=== PATIENT | female | born 1955 | race Caucasian/White ===

== ENCOUNTER → 2016-11-30 | Outpatient (REF) | payer MEDICARE, OTHER ==
[~2016-11-30] MED LIST: /GLIM2TA OR; ALLO300T OR; APIDINJ INJ; APIDINJ2 SC; APIDINJ2 SUBQ; ATOR1TAB18 PO; BACT800T5 PO; CALC1CAP31 PO; CIPR500T4 PO; CLAR1TAB2 PO; CRES40TA PO; DOCU100C PO; DRIS50002 PO; DULC10SU2 PR; DULCOLAX PO; EPOGEN SC; FERR324T2 PO; FERR325T PO; FISH1000 PO; GLIM4TAB PO; HEPARIN IP; INSULANT SC; IRON CR PO; KLOR1TAB69 PO; LANTINJ4 SC; LEVA250T PO; LIPI10TA OR; LOVA1CAP17 PO; LYRI150C PO; LYRI75CA OR; MAGN250T9 PO; MAGN400T2 PO; MOBI7.5T10 PO; NEPHTAB PO; NYST5000 TOP; PERCOCET PO; POTA10CA PO; POTA20TA2 PO; PRIL40CA PO; RENV2TAB PO; SENO8.6T2 PO; SEVE80TAB PO; STOO100C PO; THERGRAN PO; TRIL135C PO; TRILIPIX PO; TYLE325T5 PO; VICTOZA SC; VITAMIN D50000 UNT OR; VITMTA PO; WARF05TA PO
[2016-11-30 11:54] LABS: MEAN CORPUSCULAR HEMOGLOBIN 28.9 pg (27.0-33.0); MEAN CORPUSCULAR HGB CONC 31.1 g/dl (32.0-36.5); MEAN CORPUSCULAR VOLUME 92.8 fl (80.0-96.0); PLATELET COUNT, AUTOMATED 100 k/mm3 (150-450); RED CELL DISTRIBUTION WIDTH 17.9 % (11.5-14.5); WHITE BLOOD COUNT 3.6 K/mm3 (4.0-10.0)
[2016-11-30 12:03] LABS: CHOLESTEROL LEVEL 93 MG/DL (<200); FREE T4 0.93 NG/DL (0.76-1.46); TRIGLYCERIDES LEVEL 150 MG/DL (<150)
[2016-11-30 12:04] LABS: THYROID PEROXIDASE ANTIBODY < 28.0 U/ML (<60.0)
[2016-11-30 12:18] LABS: ANISOCYTOSIS 1+; BASOPHILS 1 % (0-4); EOSINOPHILS 6 % (0-5); HYPOCHROMASIA 3+
== END ==
LOC: M SFHCPLAZ 08:34
PROVIDERS: ATTEND Family Medicine
DX: E78.2 Mixed hyperlipidemia (principal); E11.29 Type 2 diabetes mellitus with other diabetic kidney complication

== ENCOUNTER 2016-12-19 10:48 | Observation (INO) | payer MEDICARE, OTHER ==
[~2016-12-19] VITALS: Ht 162.6 cm; Wt 92.4 kg
[2016-12-19] MEDS ORDERED: ONDANSETRON 4MG/2ML VIAL (J2405) As Ordered ONE (11:29)
[2016-12-19 11:50] LABS: BASO % 0.8 % (0.0-1.0); EOS # 0.1 K/mm3 (0.0-0.50); LARGE UNSTAINED CELL # 0.1 K/mm3 (0.0-0.4); LARGE UNSTAINED CELL % 2.2 % (0.0-4.0); LYMPH # 0.7 K/mm3 (1.5-4.5); LYMPH % 17.6 % (24.0-44.0); MEAN CORPUSCULAR HGB CONC 31.8 g/dl (32.0-36.5); MONO # 0.2 K/mm3 (0.0-0.8); MONO % 6.6 % (0.0-5.0); NEUTROPHILS # 2.4 K/mm3 (1.8-7.7); NEUTROPHILS % 70.8 % (36.0-66.0); PLATELET COUNT, AUTOMATED 110 k/mm3 (150-450); RED CELL DISTRIBUTION WIDTH 17.2 % (11.5-14.5); WHITE BLOOD COUNT 3.4 K/mm3 (4.0-10.0)
[2016-12-19 12:20] LABS: CALCIUM LEVEL 9.5 MG/DL (8.8-10.2); CREATININE FOR GFR 7.77 MG/DL (0.55-1.02); GLOMERULAR FILTRATION RATE 5.6 (>45); POTASSIUM SERUM 5.1 MEQ/L (3.5-5.1)
[2016-12-19] MEDS ORDERED: ROPI0.25 PO (15:12)
[2016-12-19] MEDS ORDERED: BIOT10005 PO (15:13)
[2016-12-19] MEDS ORDERED: ACET500C PO (15:15)
[2016-12-19] MEDS ORDERED: DOCUSATE SODIUM 100 MG CAP PO PRN (17:45)
[2016-12-19] MEDS ORDERED: GLUCOSE 4 GM CHEW TABLET PO PRN (17:45)
[2016-12-19] MEDS ORDERED: GLUCAGON FOR INJ 1 MG VIAL (J1610) SC PRN (17:45)
[2016-12-19] MEDS ORDERED: DEXTROSE 50% 50 ML SYRINGE IV PRN (17:45)
[2016-12-19] MEDS ORDERED: ONDANSETRON 4MG/2ML VIAL (J2405) IV PRN (17:45)
--- NOTE | 2016-12-19 18:45 | EDDOCDS ---
Physician Documentation [facility] Name: Cha Henlsey Age: 61 yrs Sex: Female : 1955 Arrival Date: 12/19/2016 Time: 10:48 Bed 20 Private MD: Petey Lopez E. Disposition: 12/19/16 15:50 Hospitalization ordered by Carlos Tomas for Inpatient Admission. Preliminary diagnosis are Benign paroxysmal vertigo, End stage renal disease. - Bed requested for 4 [place]. - Status is Inpatient Admission. pml - Condition is Stable. - Problem is new. - Symptoms have improved. Historical: - Allergies: Adhesives (Rash); Antivert; aspartame (Rash); - Home Meds: 1. acetaminophen 325 mg Oral tab 2 tabs as needed as needed 2. Apidra 100 unit/mL subcutaneous soln twice a day per sliding sclae 3. biotin 1,000 mcg oral chew daily 4. calcitriol 0.25 mcg oral cap three times a day 5. Claritin 10 mg Oral tab 1 tab once daily as needed 6. Crestor 40 mg Oral tab 1 tab once daily 7. Dulcolax (bisacodyl) 10 MG CAP Rectal supp 1 suppository once daily as needed 8. Drisdol 5,000 units Oral twice a week 9. ferrous sulfate 324 mg (65 mg iron) Oral TbEC twice a day 10. Lantus 100 unit/mL Sub-Q soln 28 unit daily 11. Lovaza 1 gram oral cap 2 times per day 12. Nephro-Jess Rx 1-60-300 mg-mg-mcg oral tab 1 tab daily 13. Renvela 1600mg oral 3 times per day with meals 14. Senokot 8.6 mg Oral tab 1 tabs twice a day 15. Trilipix 135 mg oral cpDR 1 cap once daily 16. pregabalin 150 mg Oral cap 1 cap 2 times per day - PMHx: Chronic Renal Failure with dialysis; Diabetes - NIDDM: controlled; Diabetic Neuropathy; High Cholesterol; Sleep Apnea w/ CPAP; Vertigo; - PSHx: Cholecystectomy; Appendectomy; Hysterectomy; Orthopedic Surgery; fistula left arm; PD catheter; PD catheter removal (10/09/2016); - Family history: Not pertinent. - Social history: Smoking status: Patient uses tobacco products and is smoker, current status unknown. . - : The pt / caregiver states he / she is not on anticoagulants. Home medication list is obtained from the patient. - Exposure Risk Screening:: None identified. Vital Signs: 12/19 10:50 BP 162 / 72; Pulse 60; Resp 20; Temp 96.7(O); Pulse Ox 96% on R/A; Weight 88 kg / elp 194.01 lbs (R); Height 5 ft. 4 in. (162.56 cm) (R); Pain 10/10; 10:58 BP 156 / 71 Sitting (auto/); hs1 11:00 Pulse 66 MON; Pulse Ox 99% ; hs1 11:01 Pulse 64 MON; Pulse Ox 99% ; hs1 11:01 BP 152 / 69 Standing (auto/); hs1 11:27 BP 154 / 67 (auto/); rs3 11:27 Pulse 58 MON; Pulse Ox 100% ; rs3 11:40 Pulse 60 MON; Pulse Ox 100% ; rs3 11:42 BP 149 / 66 (auto/); rs3 11:57 BP 149 / 71 (auto/); rs3 11:57 Pulse 56 MON; Pulse Ox 99% ; rs3 12:12 BP 126 / 59 (auto/); rs3 12:12 Pulse 58 MON; Pulse Ox 97% ; rs3 12:27 BP 131 / 63 (auto/); rs3 12:27 Pulse 56 MON; Pulse Ox 99% ; rs3 12:51 BP 140 / 64 (auto/); rs3 12:52 Pulse 60 MON; Pulse Ox 95% ; rs3 12:57 BP 144 / 74 (auto/); rs3 12:59 Pulse 60 MON; Pulse Ox 100% ; rs3 13:14 BP 142 / 67 (auto/); rs3 13:17 Pulse 58 MON; Pulse Ox 99% ; rs3 13:27 BP 139 / 63 (auto/); rs3 13:27 Pulse 58 MON; Pulse Ox 99% ; rs3 13:37 Pulse 58 MON; Pulse Ox 94% ; rs3 13:42 BP 143 / 65 (auto/); rs3 13:42 Pulse 60 MON; Pulse Ox 98% ; rs3 13:57 BP 142 / 67 (auto/); rs3 13:57 Pulse 60 MON; Pulse Ox 95% ; rs3 14:09 Pulse 64 MON; Pulse Ox 92% ; rs3 14:12 BP 136 / 63 (auto/); rs3 14:27 BP 130 / 62 (auto/); rs3 14:27 Pulse 68 MON; Pulse Ox 93% ; rs3 14:38 Pulse 64 MON; Pulse Ox 96% ; rs3 14:42 BP 136 / 75 (auto/); rs3 14:42 Pulse 68 MON; Pulse Ox 99% ; rs3 14:57 BP 129 / 68 (auto/); rs3 14:57 Pulse 62 MON; Pulse Ox 95% ; rs3 15:08 Pulse 62 MON; Pulse Ox 98% ; rs3 17:22 BP 128 / 99 (auto/); pml 17:24 Pulse 72 MON; Pulse Ox 88% ; pml 18:35 BP 134 / 71; Pulse 64; Resp 18; Temp 98.3; Pulse Ox 98% on R/A; pml 10:50 Body Mass Index 33.30 (88.00 kg, 162.56 cm) elp MDM: 10:57 Plastic Cutter/Pulse Ox/q 15 min VS ordered. fg 10:57 Accucheck ordered. fg 10:57 IV Saline Lock ordered. fg 10:57 Orthostatic VS ordered. fg 10:57 Rhythm Strip to chart ordered. fg 10:58 Basic Metabolic Profile Ordered. EDMS 10:58 CBC with Diff Ordered. EDMS 10:58 Thyroid Stimulating Hormone Ordered. EDMS 10:58 Urinalysis Ordered. EDMS 10:58 Urine Culture Ordered. EDMS 10:59 ECG WITH READING ER PHYS+CARDIAG ordered. EDMS 11:15 Ondansetron 4 mg IVP once ordered. fg 12:39 Financial registration complete. mm15 12:46 [facility] Payment Agreement was scanned into [employer] and attached to record. mm15 13:58 BED REQUEST+ADM ordered. EDMS 17:46 T-Sheet-- Draft Copy was scanned into [employer] and attached to record. klr 17:50 Admission / Observation Status ordered. EDMS 17:50 CONSISTENT CARBOHYDRATES ordered. EDMS 17:50 NO ADDED SALT DIET ordered. EDMS 17:50 2 GRAM SODIUM DIET ordered. EDMS Point of Care Testing: Blood Glucose: 11:24 Blood Glucose: 75 mg/dL; rs3 Ranges: Administered Medications: 11:56 Drug: Ondansetron 4 mg [ondansetron HCl 2 mg/mL intravenous solution (2 mL)] Route: rs3 IVP; Site: right antecubital; Signatures: Dispatcher [employer] DANNY MCGREGOR, TRINIDAD De Anda RN, Rosemary, RN RN rs3 Mabel RiceRN RN Ward Lindsay mm15 Susan Don MD MD fg Redder, Kathie klr The chart was reviewed and I authenticate all verbal orders and agree with the evaluation and treatment provided.Attachments: 12:46 [place] [place] mm15 17:46 T-Sheet-- Draft Copy klr MTDD
--- NOTE | 2016-12-19 18:45 | EDDOCDS ---
Nurse's Notes [facility] Name: Cha Hensley Age: 61 yrs Sex: Female : 1955 Arrival Date: 12/19/2016 Time: 10:48 Bed 20 Private MD: Petey Lopez E. Diagnosis: Benign paroxysmal vertigo;End stage renal disease Presentation: 12/19 11:04 Presenting complaint: Patient states: dizziness started when patient woke up this hs1 morning. Patient describes room as spinning and "I feel like I'm a bad drunk". Patient reports nausea. Denies vomiting, no diarrhea. Adult Sepsis Screening: The patient does not have new or worsening altered mentation. Patient's respiratory rate is less than 22. Systolic blood pressure is greater than 100. Patient has a qSOFA score of 0- Negative Sepsis Screen. Suicide/Homicide risk assessment- the patient denies having any suicidal and/or homicidal ideations and does not present with any other emotional, behavioral or mental health complaints. Status: Patient is not a human service worker or dependent. Transition of care: patient was not received from another setting of care. 11:04 Acuity: GINA Level 3 hs1 11:04 Method Of Arrival: Walkin/Carried/Asstd hs1 Triage Assessment: 11:07 General: Appears in no apparent distress, Behavior is appropriate for age, cooperative. hs1 HIV screening NA for this visit Offered previously. Neurological: Level of Consciousness is awake, alert, Reports dizziness. Historical: - Allergies: Adhesives (Rash); Antivert; aspartame (Rash); - Home Meds: 1. acetaminophen 325 mg Oral tab 2 tabs as needed as needed 2. Apidra 100 unit/mL subcutaneous soln twice a day per sliding sclae 3. biotin 1,000 mcg oral chew daily 4. calcitriol 0.25 mcg oral cap three times a day 5. Claritin 10 mg Oral tab 1 tab once daily as needed 6. Crestor 40 mg Oral tab 1 tab once daily 7. Dulcolax (bisacodyl) 10 MG CAP Rectal supp 1 suppository once daily as needed 8. Drisdol 5,000 units Oral twice a week 9. ferrous sulfate 324 mg (65 mg iron) Oral TbEC twice a day 10. Lantus 100 unit/mL Sub-Q soln 28 unit daily 11. Lovaza 1 gram oral cap 2 times per day 12. Nephro-Jess Rx 1-60-300 mg-mg-mcg oral tab 1 tab daily 13. Renvela 1600mg oral 3 times per day with meals 14. Senokot 8.6 mg Oral tab 1 tabs twice a day 15. Trilipix 135 mg oral cpDR 1 cap once daily 16. pregabalin 150 mg Oral cap 1 cap 2 times per day - PMHx: Chronic Renal Failure with dialysis; Diabetes - NIDDM: controlled; Diabetic Neuropathy; High Cholesterol; Sleep Apnea w/ CPAP; Vertigo; - PSHx: Cholecystectomy; Appendectomy; Hysterectomy; Orthopedic Surgery; fistula left arm; PD catheter; PD catheter removal (10/09/2016); - Family history: Not pertinent. - Social history: Smoking status: Patient uses tobacco products and is smoker, current status unknown. . - : The pt / caregiver states he / she is not on anticoagulants. Home medication list is obtained from the patient. - Exposure Risk Screening:: None identified. Screenin:55 Infection Control. elp 12:20 Screening information is obtained from the patient. Fall risk: No risks identified. rs3 Assistance ADL's: requires no assistance with activities of daily living. Abuse/DV Screen: The patient / caregiver reports he/she is: not in a situation that causes fear, pain or injury. Nutritional screening: No deficits noted. Advance Directives: Currently, there is a health care proxy, Wilfred Hensley () Chana Bautista (sister). There is no active DNR order. home support is adequate. Assessment: 11:30 General: see triage assessment. rs3 12:19 General: Appears in no apparent distress, Behavior is appropriate for age, cooperative. rs3 Pain: Denies pain. Neurological: Level of Consciousness is awake, alert, Oriented to person, place, time, Reports dizziness, worse with when turning head side to side. . Cardiovascular: Capillary refill < 3 seconds Clubbing of nail beds is absent Heart tones S1 S2 present. Respiratory: Airway is patent Respiratory effort is even, unlabored, Respiratory pattern is regular, symmetrical, Breath sounds are clear bilaterally. GI: Abdomen is non- distended Bowel sounds present X 4 quads. Abd is soft and non tender X 4 quads. : Urine is clear. Derm: Skin is pink, warm & dry. 13:40 General: Appears in no apparent distress, assisted patient with ambulation. stable, rs3 slow walking. dizziness/vertigo improved with activity. denies of nausea. reports of difficulty with speaking and getting words with kidney function levels. missed dialysis today. . 14:43 General: Appears in no apparent distress, Behavior is appropriate for age, cooperative, rs3 resting comfortable on stretcher. vertigo improved much better. diet ordered. waiting for a call back from nephrology. . 15:45 General: Appears in no apparent distress, Behavior is cooperative, family brought rs3 sandwich from cafeteria. tolerating well. denies of dizziness/vertigo. family at bedside. 16:45 General: Appears in no apparent distress, Behavior is appropriate for age, cooperative, rs3 patient and family made aware of the plan of admission. denies of pain/distress. 17:49 General: Appears in no apparent distress, Behavior is appropriate for age, cooperative. pml Pain: Denies pain. Neurological: Level of Consciousness is awake, alert, Oriented to person, place, time. Cardiovascular: Capillary refill < 3 seconds Rhythm is sinus rhythm No ectopy. Respiratory: Airway is patent Respiratory effort is even, unlabored. GI: Abdomen is non- distended obese. Derm: Skin is pink, warm & dry. 18:35 General: Appears in no apparent distress, comfortable, Behavior is appropriate for age, pml cooperative. Pain: Denies pain. Neurological: Level of Consciousness is awake, alert, Oriented to person, place, time. Cardiovascular: Capillary refill < 3 seconds Rhythm is sinus rhythm No ectopy. Respiratory: Airway is patent Respiratory effort is even, unlabored. GI: Abdomen is non- distended obese. Derm: Skin is pink, warm & dry. Vital Signs: 10:50 BP 162 / 72; Pulse 60; Resp 20; Temp 96.7(O); Pulse Ox 96% on R/A; Weight 88 kg (R); elp Height 5 ft. 4 in. (162.56 cm) (R); Pain 10/10; 10:58 BP 156 / 71 Sitting (auto/); hs1 11:00 Pulse 66 MON; Pulse Ox 99% ; hs1 11:01 Pulse 64 MON; Pulse Ox 99% ; hs1 11:01 BP 152 / 69 Standing (auto/); hs1 11:27 BP 154 / 67 (auto/); rs3 11:27 Pulse 58 MON; Pulse Ox 100% ; rs3 11:40 Pulse 60 MON; Pulse Ox 100% ; rs3 11:42 BP 149 / 66 (auto/); rs3 11:57 BP 149 / 71 (auto/); rs3 11:57 Pulse 56 MON; Pulse Ox 99% ; rs3 12:12 BP 126 / 59 (auto/); rs3 12:12 Pulse 58 MON; Pulse Ox 97% ; rs3 12:27 BP 131 / 63 (auto/); rs3 12:27 Pulse 56 MON; Pulse Ox 99% ; rs3 12:51 BP 140 / 64 (auto/); rs3 12:52 Pulse 60 MON; Pulse Ox 95% ; rs3 12:57 BP 144 / 74 (auto/); rs3 12:59 Pulse 60 MON; Pulse Ox 100% ; rs3 13:14 BP 142 / 67 (auto/); rs3 13:17 Pulse 58 MON; Pulse Ox 99% ; rs3 13:27 BP 139 / 63 (auto/); rs3 13:27 Pulse 58 MON; Pulse Ox 99% ; rs3 13:37 Pulse 58 MON; Pulse Ox 94% ; rs3 13:42 BP 143 / 65 (auto/); rs3 13:42 Pulse 60 MON; Pulse Ox 98% ; rs3 13:57 BP 142 / 67 (auto/); rs3 13:57 Pulse 60 MON; Pulse Ox 95% ; rs3 14:09 Pulse 64 MON; Pulse Ox 92% ; rs3 14:12 BP 136 / 63 (auto/); rs3 14:27 BP 130 / 62 (auto/); rs3 14:27 Pulse 68 MON; Pulse Ox 93% ; rs3 14:38 Pulse 64 MON; Pulse Ox 96% ; rs3 14:42 BP 136 / 75 (auto/); rs3 14:42 Pulse 68 MON; Pulse Ox 99% ; rs3 14:57 BP 129 / 68 (auto/); rs3 14:57 Pulse 62 MON; Pulse Ox 95% ; rs3 15:08 Pulse 62 MON; Pulse Ox 98% ; rs3 17:22 BP 128 / 99 (auto/); pml 17:24 Pulse 72 MON; Pulse Ox 88% ; pml 18:35 BP 134 / 71; Pulse 64; Resp 18; Temp 98.3; Pulse Ox 98% on R/A; pml 10:50 Body Mass Index 33.30 (88.00 kg, 162.56 cm) elp Vitals: 10:50 Log In Time: December 19, 2016 at 10:45. RN notified that patient meets Red Flag elp criteria. ED Course: 10:50 Patient visited by Aretha Suero PCA. elp 10:50 Petey Lopez is Private Physician. elp 10:50 Patient moved to Waiting elp 10:55 Patient moved to 5 elp 10:56 Susan Don MD is Attending Physician. fg 10:56 Patient visited by Susan Don MD. fg 11:06 Triage Initiated hs1 11:26 EKG done. (by ED staff). Reviewed by Susan Don MD. rn1 11:43 Eri Liriano RN is Primary Nurse. rs3 12:18 Patient visited by Eri Liriano RN. rs3 12:21 Inserted saline lock: 20 gauge in right antecubital area and blood collected. Labs rs3 drawn. (by ED staff). 12:24 Patient visited by Eri Liriano RN. rs3 12:46 [place] [place] was scanned into [employer] and attached to record. mm15 13:03 Patient visited by Eri Liriano RN. rs3 13:36 Isabella Palafox sheet finisher. nq 13:39 Patient visited by Eri Liriano RN. rs3 14:40 Patient visited by Eri Liriano RN. rs3 15:10 Patient visited by Eri Liriano RN. rs3 15:49 Carlos Tomas MD is Hospitalizing Provider. fg 17:03 Patient moved to 20 dls 17:46 T-Sheet-- Draft Copy was scanned into [employer] and attached to record. klr 17:50 Patient visited by Mabel Rice RN. pml 18:35 The patient / caregiver is instructed regarding the plan of care and ED course. Patient pml has correct armband on for positive identification. Placed in gown. Bed in low position. Call light in reach. Side rails up X2. teletypesetter monitor on. Pulse ox on. NIBP on. 18:35 No procedures done that require assistance. pml Administered Medications: 11:56 Drug: Ondansetron 4 mg [ondansetron HCl 2 mg/mL intravenous solution (2 mL)] Route: rs3 IVP; Site: right antecubital; Point of Care Testing: Blood Glucose: 11:24 Blood Glucose: 75 mg/dL; rs3 Ranges: Order Results: Lab Order: Basic Metabolic Profile; SPEC'M 12/19/16 11:37 Test: GLUCOSE, FASTING; Value: 89; Range: 80-110; Units: MG/DL; Status: F Test: BLOOD UREA NITROGEN; Value: 69; Range: 7-18; Abnormal: Above high normal; Units: MG/DL; Status: F Test: CREATININE FOR GFR; Value: 7.77; Range: 0.55-1.02; Abnormal: Above high normal; Units: MG/DL; Status: F Test: GLOMERULAR FILTRATION RATE; Value: 5.6; Range: >45; Abnormal: Below low normal; Status: F Test: SODIUM LEVEL; Value: 146; Range: 136-145; Abnormal: Above high normal; Units: MEQ/L; Status: F Test: POTASSIUM SERUM; Value: 5.1; Range: 3.5-5.1; Units: MEQ/L; Status: F Test: CHLORIDE LEVEL; Value: 108; Range: 98-107; Abnormal: Above high normal; Units: MEQ/L; Status: F Test: CARBON DIOXIDE LEVEL; Value: 25; Range: 21-32; Units: MEQ/L; Status: F Test: ANION GAP; Value: 13; Range: 8-16; Units: MEQ/L; Status: F Test: CALCIUM LEVEL; Value: 9.5; Range: 8.8-10.2; Units: MG/DL; Status: F Test Note: ; Units are mL/min/1.73 m2 Chronic Kidney Disease Staging per NKF: Stage I & II GFR >=60 Normal to Mildly Decreased Stage III GFR 30-59 Moderately Decreased Stage IV GFR 15-29 Severely Decreased Stage V GFR <15 Very Little GFR Left ESRD GFR <15 on [employer] Lab Order: CBC with Diff; SPEC'M 12/19/16 11:37 Test: WHITE BLOOD COUNT; Value: 3.4; Range: 4.0-10.0; Abnormal: Below low normal; Units: K/mm3; Status: F Test: RED BLOOD COUNT; Value: 3.98; Range: 4.00-5.40; Abnormal: Below low normal; Units: M/mm3; Status: F Test: HEMOGLOBIN; Value: 11.5; Range: 12.0-16.0; Abnormal: Below low normal; Units: g/dl; Status: F Test: HEMATOCRIT; Value: 36.3; Range: 36.0-47.0; Units: %; Status: F Test: MEAN CORPUSCULAR VOLUME; Value: 91.0; Range: 80.0-96.0; Units: fl; Status: F Test: MEAN CORPUSCULAR HEMOGLOBIN; Value: 29.0; Range: 27.0-33.0; Units: pg; Status: F Test: MEAN CORPUSCULAR HGB CONC; Value: 31.8; Range: 32.0-36.5; Abnormal: Below low normal; Units: g/dl; Status: F Test: RED CELL DISTRIBUTION WIDTH; Value: 17.2; Range: 11.5-14.5; Abnormal: Above high normal; Units: %; Status: F Test: PLATELET COUNT, AUTOMATED; Value: 110; Range: 150-450; Abnormal: Below low normal; Units: k/mm3; Status: F Test: NEUTROPHILS %; Value: 70.8; Range: 36.0-66.0; Abnormal: Above high normal; Units: %; Status: F Test: LYMPH %; Value: 17.6; Range: 24.0-44.0; Abnormal: Below low normal; Units: %; Status: F Test: MONO %; Value: 6.6; Range: 0.0-5.0; Abnormal: Above high normal; Units: %; Status: F Test: EOS %; Value: 2.0; Range: 0.0-3.0; Units: %; Status: F Test: BASO %; Value: 0.8; Range: 0.0-1.0; Units: %; Status: F Test: LARGE UNSTAINED CELL %; Value: 2.2; Range: 0.0-4.0; Units: %; Status: F Test: NEUTROPHILS #; Value: 2.4; Range: 1.8-7.7; Units: K/mm3; Status: F Test: LYMPH #; Value: 0.7; Range: 1.5-4.5; Abnormal: Below low normal; Units: K/mm3; Status: F Test: MONO #; Value: 0.2; Range: 0.0-0.8; Units: K/mm3; Status: F Test: EOS #; Value: 0.1; Range: 0.0-0.50; Units: K/mm3; Status: F Test: BASO #; Value: 0.0; Range: 0.0-0.2; Units: K/mm3; Status: F Test: LARGE UNSTAINED CELL #; Value: 0.1; Range: 0.0-0.4; Units: K/mm3; Status: F Lab Order: Thyroid Stimulating Hormone; SPEC'M 12/19/16 11:37 Test: THYROID STIMULATING HORMONE; Value: 1.370; Range: 0.358-3.740; Units: uIU/ML; Status: F Lab Order: Urinalysis; SPEC' 12/19/16 11:37 Test: APPEARANCE, URINE; Value: CLEAR; Range: CLEAR; Status: F Test: COLOR, URINE; Value: STRAW; Range: YELLOW; Status: F Test: PH,URINE; Value: 8.0; Range: 5.0-9.0; Units: UNITS; Status: F Test: SPECIFIC GRAVITY URINE AUTO; Value: 1.005; Range: 1.002-1.035; Status: F Test: PROTEIN, URINE AUTO; Value: NEGATIVE; Range: NEGATIVE; Units: mg/dL; Status: F Test: GLUCOSE, URINE (UA) AUTO; Value: 1+; Range: NEGATIVE; Abnormal: Above high normal; Units: mg/dL; Status: F Test: KETONE, URINE AUTO; Value: NEGATIVE; Range: NEGATIVE; Units: mg/dL; Status: F Test: UROBILINOGEN, URINE AUTO; Value: 0.2; Range: 0.0-2.0; Units: mg/dL; Status: F Test: BILIRUBIN, URINE AUTO; Value: NEGATIVE; Range: NEGATIVE; Status: F Test: NITRITE, URINE AUTO; Value: NEGATIVE; Range: NEGATIVE; Status: F Test: LEUKOCYTE ESTERASE, URINE AUTO; Value: TRACE; Range: NEGATIVE; Abnormal: Above high normal; Status: F Test: BLOOD, URINE BLOOD; Value: 1+; Range: NEGATIVE; Abnormal: Above high normal; Status: F Test: WBC, URINE AUTO; Value: 1; Range: 0-3; Units: /HPF; Status: F Test: RBC, URINE AUTO; Value: 0; Range: 0-3; Units: /HPF; Status: F Test: BACTERIA, URINE AUTO; Value: NEGATIVE; Range: NEGATIVE; Status: F Test: SQUAMOUS EPITHELIAL CELL UR AU; Value: 0; Range: 0-6; Units: /HPF; Status: F Test: HYALINE CAST, URINE AUTO; Value: 0; Range: 0-1; Units: /LPF; Status: F Lab Order: Fingerstick Blood Sugar; SPEC'M 12/19/16 11:16 Test: BEDSIDE GLUCOSE; Value: 75; Range: 80-115; Abnormal: Below low normal; Units: MG/DL; Status: F Outcome: 15:50 Decision to Hospitalize by Provider. fg 18:35 Discharge Assessment: Patient awake, alert and oriented x 3. No cognitive and/or pml functional deficits noted. Patient verbalized understanding of disposition instructions. patient administered narcotics - no. The following High Risk Discharge criteria are identified: None. Admitted to Med/Surg accompanied by tech, via wheelchair, with chart. Condition: good Condition: stable. Admission hand-off: Report called to Rakesh Ayala. Property :Personal belongings accompany Pt. 18:37 No special radiology studies were completed. pml 18:44 Patient left the ED. pml Signatures: Mary Pierre RN RN dls Soosairaj, Rosemary, RN RN rs3 Leena Albarran RN RN hs1 Mabel Rice RN RN pml Isabella Palafox Marlynn mm15 Aretha Suero, MARIANELA HOME HOUSEKEEPER Kike Fountain rn1 Susan Don MD MD fg Redder, Kathie klr MTDD
[2016-12-19 18:48] VITALS: BP 131/60
[2016-12-19] MEDS: (RENVELA) SEVELAMER **CARBONate** 800 MG TAB PO SCH (19:06)
[2016-12-19] MEDS: OMEGA-3 1050MG CAPSULE PO SCH (20:34)
[2016-12-19] MEDS: FERROUS SULFATE 325MG TAB PO SCH (20:34)
[2016-12-19] MEDS: PREGABALIN 75 MG CAP(LYRICA) PO SCH (20:34)
[2016-12-19] MEDS ORDERED: ROSUVASTATIN 10 MG TAB (CRESTOR) PO SCH (21:00)
[2016-12-19] MEDS ORDERED: HumaLOG INSULIN (NovoLOG) PER UNIT SC SCH (21:00)
[2016-12-19] MEDS ORDERED: rOPINIRole 0.25 MG TAB(REQUIP) PO SCH (21:00)
[2016-12-19] MEDS ORDERED: LEVEMIR (INSULIN DETEMIR) 1 UNITS/0.01ML SC SCH (21:00)
[2016-12-19 22:00] VITALS: BP 124/61
[2016-12-20 06:00] VITALS: BP 110/58
[2016-12-20 06:41] LABS: ALBUMIN 2.7 GM/DL (3.2-5.2); CALCIUM LEVEL 8.6 MG/DL (8.8-10.2); CREATININE FOR GFR 8.88 MG/DL (0.55-1.02); GLOMERULAR FILTRATION RATE 4.8 (>45); PHOSPHORUS LEVEL 5.8 MG/DL (2.5-4.9)
[2016-12-20] MEDS: HumaLOG INSULIN (NovoLOG) PER UNIT SC SCH ×2 (07:55→11:54)
[2016-12-20] MEDS: (RENVELA) SEVELAMER **CARBONate** 800 MG TAB PO SCH ×2 (08:47→11:54)
[2016-12-20] MEDS ORDERED: NEPHRO-VIT TAB (NEPHROCAPS) PO SCH (09:00)
[2016-12-20] MEDS ORDERED: CALCITRIOL 0.25 MCG CAP (S0169) PO SCH (09:00)
[2016-12-20] MEDS: PREGABALIN 75 MG CAP(LYRICA) PO SCH (09:57)
[2016-12-20] MEDS: FERROUS SULFATE 325MG TAB PO SCH (09:57)
[2016-12-20] MEDS: OMEGA-3 1050MG CAPSULE PO SCH (09:57)
--- NOTE | 2016-12-20 15:36 | ECGEPIP ---
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
--- NOTE | 2016-12-21 08:32 | HPE ---
DATE OF ADMISSION: 12/19/2016 PRIMARY CARE PROVIDER: Dr. Petey Lopez. ATTENDING TODAY: Dr. Carlos Tomas. HISTORY: This is a 61-year-old female patient who presented to [facility] Emergency Room this morning after suffering some dizziness and unsteady gait while at home. She presented to the emergency room. She received some intravenous (IV) Zofran as she had nausea associated with the dizziness. She is feeling better. Her gait is still slightly abnormal, although she does feel as though she could return home. She did, however, miss dialysis this morning. She has end-stage renal disease, is on chronic renal dialysis on Wednesday, , Wednesday. Dr. Lozano was called. He recommended that the patient was admitted to the hospital so that she could receive dialysis tomorrow, December 19, and therefore, the patient is being admitted. CURRENT MEDICATIONS: - Crestor 40 mg once daily - Lovaza 1 gram two capsules twice daily - Lantus 28 units before bed - Apidra sliding scale - Requip 0.25 mg before bed - Renvela 800 mg two tablets three times daily - Lyrica 150 mg twice daily - Nephro-Jess one tablet daily - calcitriol 0.25 mcg by mouth three times weekly - Trilipix 135 mg by mouth daily - ferrous sulfate 325 mg by mouth twice daily - Senna one tablet twice daily - Claritin 10 mg daily as needed - Colace 100 mg by mouth twice a day - vitamin D 50,000 units by mouth daily - Biotin 10 mg once daily PAST MEDICAL HISTORY: 1. End-stage renal disease. 2. Anemia of chronic disease. 3. Hyperparathyroidism secondary to IgA nephropathy and diabetic nephropathy, on peritoneal dialysis with Dr. Lozano. 4. History of adenomatous polyps, normal colonoscopy in 2008 and 2014. 5. Bilateral lower extremity diabetic peripheral neuropathy. 6. Obstructive sleep apnea on continuous positive airway pressure (CPAP). 7. Hyperlipidemia. 8. Recurrent bilateral hydradenitis. 9. Gout. 10. Vitamin D deficiency. 11. Morbid obesity. 12. Anxiety. 13. 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 Hypertension. 15. Diabetes mellitus type two with peripheral neuropathy, insulin dependent. 16. History of Clostridium difficile colitis. 17. Bilateral pulmonary emboli with saddle embolus in 2012. 18. Cervical spinal stenosis. 19. Moderate left ventricular hypertrophy (LVH), grade 1 diastolic dysfunction, mild aortic stenosis February 2016, transthoracic echocardiogram, Dr. Zuleta. 20. Nephrolithiasis. PAST SURGICAL HISTORY: 1. Appendectomy. 2. Cholecystectomy. 3. Partial hysterectomy. 4. Tubal ligation. 5. Breast biopsy. 6. Dilation and curettage. 7. Peritoneal dialysis catheter, BFO dialysis catheter, multiple dialysis catheters placement. 8. Left basket stone removal. FAMILY HISTORY: Noncontributory. SOCIAL HISTORY: She is a nonsmoker. She does not drink alcohol, does not use illicit drugs, does not drink caffeine. She follows a carbohydrate controlled diet without any dairy. Does not exercise regularly. Lives at home with her . She has no advance directives. ALLERGIES: 1. TALWIN causes dizziness and rash. 2. ARTIFICIAL SWEETENERS cause headache. 3. ADHESIVE TAPE causes a rash. REVIEW OF SYSTEMS: The patient denies any headache, any lightheadedness. Her dizziness is significantly improved. She is able to turn her head from side to side without triggering any dizziness. She simply feels unsteady on her feet. She denies any vision changes, any mouth sore or lesions, difficulty swallowing. Denies chest pain, palpitations, swelling in her legs. Denies shortness of breath, cough, hemoptysis, nausea, vomiting, diarrhea, melena, hematochezia, dysuria, hematuria, polyuria, polydipsia, polyphagia. PHYSICAL EXAMINATION: VITAL SIGNS: GENERAL: This is a middle-aged female patient who is lying comfortably in the hospital emergency room [facility]. She is alert and oriented. She is pleasant. She does recognize me. HEENT: Head is normocephalic, atraumatic. Pupils equal, round, and reactive to light and accommodation. She has no nystagmus. Oropharynx is pink and moist. NECK: Supple without lymphadenopathy. CARDIOVASCULAR: Regular rate and rhythm. LUNGS: Clear to auscultation bilaterally. ABDOMEN: Obese, soft, nontender. She has positive bowel sounds. EXTREMITIES: Without clubbing, cyanosis or edema. INVESTIGATIONS: Reveal a white blood cell count of 3.4, hemoglobin 11.5, hematocrit 36.3, platelets are 110. Sodium 146, potassium 5.1, chloride is 108, carbon dioxide 25, creatinine 7.77, glucose is 89. TSH is 1.37. Urine is negative for leukocytes, nitrites, has 1+ blood, 1+ glucose. ASSESSMENT AND PLAN: 1. Vertigo, which is essentially resolved in the emergency room after receiving an intravenous (IV) dose of Zofran for the nausea. 2. End-stage renal disease on peritoneal dialysis. This is the reason for admission, is she missed her dialysis this morning. Dr. Lozano plans on dialyzing her tomorrow. 3. Diabetes mellitus type 2. We will continue her on her long-acting insulin as well as sliding-scale insulin during her hospitalization. 4. Anemia of chronic disease with iron-deficiency anemia. Her hemoglobin is stable at this point. We will continue her on her iron supplementation. 5. Disposition: I have ordered sequential compression devices (SCDs) and thromboembolism deterrent stockings (TEDs). I have encouraged her out of bed with ambulation; therefore, I have not ordered any Lovenox or heparin replacement.
--- NOTE | 2016-12-21 08:33 | CR ---
DATE OF CONSULTATION: 12/20/2016 CONSULTATION FOR [facility]GHESE SERVIN MD REASON FOR CONSULTATION: To assist in the management of end-stage renal disease. HISTORY OF PRESENT ILLNESS: Mrs. Hensley is a 61-year-old female with known history of end-stage renal disease, diabetes, morbid obesity, obstructive sleep apnea and peripheral neuropathy. She was admitted yesterday with severe vertigo. She missed her dialysis treatment yesterday and a nephrology consultation was requested at the time of admission. The patient is seen this morning. PAST MEDICAL HISTORY (Significant for): 1. End-stage renal disease secondary to IgA nephropathy. 2. History of diabetes. 3. History of obstructive sleep apnea. 4. Morbid obesity. 5. Dyslipidemia. 6. Peripheral neuropathy. 8. Hyperparathyroidism. 9. History of gastroesophageal reflux disease. PAST SURGICAL HISTORY (Significant for): 1. Cholecystectomy. 2. Appendectomy. 3. Hysterectomy. 4. AV fistula creation. 6. Peritoneal dialysis catheter placement. PERSONAL AND SOCIAL HISTORY: The patient is and lives with her family. She does not smoke or drink. FAMILY HISTORY: Negative for end-stage renal disease. REVIEW OF SYSTEMS: The patient reports sudden onset of dizziness and nausea yesterday morning due to which she was advised to come to the emergency room. She did receive Zofran intravenously with improved symptoms. She denies any headache now. Her nausea has also improved. Ears, nose and throat are otherwise unremarkable. Cardiovascular system is negative for dyspnea or chest pain. Respiratory system is negative for cough or hemoptysis. Gastrointestinal (GI) system is significant for nausea which has improved. She denies any abdominal pain, diarrhea or vomiting. Genitourinary () system is negative for dysuria or hematuria, though patient does feel that when she gets urinary tract infections she gets these kind of symptoms. Musculoskeletal system is significant for morbid obesity. Endocrine system is significant for diabetes and secondary hyperparathyroidism. Psychosocial system is negative for depression or anxiety. Neurological system is significant for peripheral neuropathy. Skin is negative for rash or ulcers. PHYSICAL EXAMINATION: At the time of my visit, the patient is awake and alert sitting in the chair. Temperature 97.1 degrees Fahrenheit, heart rate 66 per minute and respiratory rate 18 per minute. Blood pressure 110/58 mmHg and oxygen saturation 95% on room air. Head is atraumatic. Ears, nose and throat are unremarkable. Neck is supple and without any jugular venous distention (JVD) or thyroid enlargement. Trachea is midline. Heart sounds are regular. Lungs clear to auscultation bilaterally. Abdomen obese, soft and nontender. Bowel sounds are normal. There is no palpable organomegaly. Extremities have no cyanosis or clubbing. AV fistula is patent. She has no peripheral edema. Neurologically, she is awake, alert and oriented times three There is no focal neurological deficit. LABORATORY DATA: Sodium is 145 and potassium 4.0. BUN 79 and creatinine 8.88. Calcium level 8.6 and phosphorus 5.8. Yesterday, her WBC count was 3.4, hemoglobin 11.5 and hematocrit 36.3. Urinalysis showed only 1 WBC and 0 RBC. PROBLEMS: 1. End-stage renal disease. The patient did miss her dialysis treatment yesterday. We could not dialyze her as her admission was quite late in the day and there was no emergent indication for dialysis. Even today, her volume status is well-compensated and electrolytes are within normal range. I do not feel that dialysis is urgently indicated. We will try to get her scheduled for hemodialysis on Wednesday as an outpatient. 2. Vertigo and nausea. Her symptoms have improved with symptomatic treatment. At this point, no acute intervention is indicated. 3. Disposition. From a renal standpoint, the patient can be discharged to home and we will schedule her dialysis as an outpatient tomorrow. I thank you for involving me in the care of Mrs. Hensley.
--- NOTE | 2016-12-21 19:45 | EDDOCDS ---
Nurse's Notes [facility] Name: Cha Hensley Age: 61 yrs Sex: Female : 1955 Arrival Date: 12/19/2016 Time: 10:48 Bed 20 Private MD: Petey Lopez E. Diagnosis: Benign paroxysmal vertigo;End stage renal disease Presentation: 12/19 11:04 Presenting complaint: Patient states: dizziness started when patient woke up this hs1 morning. Patient describes room as spinning and "I feel like I'm a bad drunk". Patient reports nausea. Denies vomiting, no diarrhea. Adult Sepsis Screening: The patient does not have new or worsening altered mentation. Patient's respiratory rate is less than 22. Systolic blood pressure is greater than 100. Patient has a qSOFA score of 0- Negative Sepsis Screen. Suicide/Homicide risk assessment- the patient denies having any suicidal and/or homicidal ideations and does not present with any other emotional, behavioral or mental health complaints. Status: Patient is not a building serviceman or dependent. Transition of care: patient was not received from another setting of care. 11:04 Acuity: GINA Level 3 hs1 11:04 Method Of Arrival: Walkin/Carried/Asstd hs1 Triage Assessment: 11:07 General: Appears in no apparent distress, Behavior is appropriate for age, cooperative. hs1 HIV screening NA for this visit Offered previously. Neurological: Level of Consciousness is awake, alert, Reports dizziness. Historical: - Allergies: Adhesives (Rash); Antivert; aspartame (Rash); - Home Meds: 1. acetaminophen 325 mg Oral tab 2 tabs as needed as needed 2. Apidra 100 unit/mL subcutaneous soln twice a day per sliding sclae 3. biotin 1,000 mcg oral chew daily 4. calcitriol 0.25 mcg oral cap three times a day 5. Claritin 10 mg Oral tab 1 tab once daily as needed 6. Crestor 40 mg Oral tab 1 tab once daily 7. Dulcolax (bisacodyl) 10 MG CAP Rectal supp 1 suppository once daily as needed 8. Drisdol 5,000 units Oral twice a week 9. ferrous sulfate 324 mg (65 mg iron) Oral TbEC twice a day 10. Lantus 100 unit/mL Sub-Q soln 28 unit daily 11. Lovaza 1 gram oral cap 2 times per day 12. Nephro-Jess Rx 1-60-300 mg-mg-mcg oral tab 1 tab daily 13. Renvela 1600mg oral 3 times per day with meals 14. Senokot 8.6 mg Oral tab 1 tabs twice a day 15. Trilipix 135 mg oral cpDR 1 cap once daily 16. pregabalin 150 mg Oral cap 1 cap 2 times per day - PMHx: Chronic Renal Failure with dialysis; Diabetes - NIDDM: controlled; Diabetic Neuropathy; High Cholesterol; Sleep Apnea w/ CPAP; Vertigo; - PSHx: Cholecystectomy; Appendectomy; Hysterectomy; Orthopedic Surgery; fistula left arm; PD catheter; PD catheter removal (10/09/2016); - Family history: Not pertinent. - Social history: Smoking status: Patient uses tobacco products and is smoker, current status unknown. . - : The pt / caregiver states he / she is not on anticoagulants. Home medication list is obtained from the patient. - Exposure Risk Screening:: None identified. Screenin:55 Infection Control. elp 12:20 Screening information is obtained from the patient. Fall risk: No risks identified. rs3 Assistance ADL's: requires no assistance with activities of daily living. Abuse/DV Screen: The patient / caregiver reports he/she is: not in a situation that causes fear, pain or injury. Nutritional screening: No deficits noted. Advance Directives: Currently, there is a health care proxy, Wilfred Hensley () Chana Bautista (sister). There is no active DNR order. home support is adequate. Assessment: 11:30 General: see triage assessment. rs3 12:19 General: Appears in no apparent distress, Behavior is appropriate for age, cooperative. rs3 Pain: Denies pain. Neurological: Level of Consciousness is awake, alert, Oriented to person, place, time, Reports dizziness, worse with when turning head side to side. . Cardiovascular: Capillary refill < 3 seconds Clubbing of nail beds is absent Heart tones S1 S2 present. Respiratory: Airway is patent Respiratory effort is even, unlabored, Respiratory pattern is regular, symmetrical, Breath sounds are clear bilaterally. GI: Abdomen is non- distended Bowel sounds present X 4 quads. Abd is soft and non tender X 4 quads. : Urine is clear. Derm: Skin is pink, warm & dry. 13:40 General: Appears in no apparent distress, assisted patient with ambulation. stable, rs3 slow walking. dizziness/vertigo improved with activity. denies of nausea. reports of difficulty with speaking and getting words with kidney function levels. missed dialysis today. . 14:43 General: Appears in no apparent distress, Behavior is appropriate for age, cooperative, rs3 resting comfortable on stretcher. vertigo improved much better. diet ordered. waiting for a call back from nephrology. . 15:45 General: Appears in no apparent distress, Behavior is cooperative, family brought rs3 sandwich from cafeteria. tolerating well. denies of dizziness/vertigo. family at bedside. 16:45 General: Appears in no apparent distress, Behavior is appropriate for age, cooperative, rs3 patient and family made aware of the plan of admission. denies of pain/distress. 17:49 General: Appears in no apparent distress, Behavior is appropriate for age, cooperative. pml Pain: Denies pain. Neurological: Level of Consciousness is awake, alert, Oriented to person, place, time. Cardiovascular: Capillary refill < 3 seconds Rhythm is sinus rhythm No ectopy. Respiratory: Airway is patent Respiratory effort is even, unlabored. GI: Abdomen is non- distended obese. Derm: Skin is pink, warm & dry. 18:35 General: Appears in no apparent distress, comfortable, Behavior is appropriate for age, pml cooperative. Pain: Denies pain. Neurological: Level of Consciousness is awake, alert, Oriented to person, place, time. Cardiovascular: Capillary refill < 3 seconds Rhythm is sinus rhythm No ectopy. Respiratory: Airway is patent Respiratory effort is even, unlabored. GI: Abdomen is non- distended obese. Derm: Skin is pink, warm & dry. Vital Signs: 10:50 BP 162 / 72; Pulse 60; Resp 20; Temp 96.7(O); Pulse Ox 96% on R/A; Weight 88 kg (R); elp Height 5 ft. 4 in. (162.56 cm) (R); Pain 10/10; 10:58 BP 156 / 71 Sitting (auto/); hs1 11:00 Pulse 66 MON; Pulse Ox 99% ; hs1 11:01 Pulse 64 MON; Pulse Ox 99% ; hs1 11:01 BP 152 / 69 Standing (auto/); hs1 11:27 BP 154 / 67 (auto/); rs3 11:27 Pulse 58 MON; Pulse Ox 100% ; rs3 11:40 Pulse 60 MON; Pulse Ox 100% ; rs3 11:42 BP 149 / 66 (auto/); rs3 11:57 BP 149 / 71 (auto/); rs3 11:57 Pulse 56 MON; Pulse Ox 99% ; rs3 12:12 BP 126 / 59 (auto/); rs3 12:12 Pulse 58 MON; Pulse Ox 97% ; rs3 12:27 BP 131 / 63 (auto/); rs3 12:27 Pulse 56 MON; Pulse Ox 99% ; rs3 12:51 BP 140 / 64 (auto/); rs3 12:52 Pulse 60 MON; Pulse Ox 95% ; rs3 12:57 BP 144 / 74 (auto/); rs3 12:59 Pulse 60 MON; Pulse Ox 100% ; rs3 13:14 BP 142 / 67 (auto/); rs3 13:17 Pulse 58 MON; Pulse Ox 99% ; rs3 13:27 BP 139 / 63 (auto/); rs3 13:27 Pulse 58 MON; Pulse Ox 99% ; rs3 13:37 Pulse 58 MON; Pulse Ox 94% ; rs3 13:42 BP 143 / 65 (auto/); rs3 13:42 Pulse 60 MON; Pulse Ox 98% ; rs3 13:57 BP 142 / 67 (auto/); rs3 13:57 Pulse 60 MON; Pulse Ox 95% ; rs3 14:09 Pulse 64 MON; Pulse Ox 92% ; rs3 14:12 BP 136 / 63 (auto/); rs3 14:27 BP 130 / 62 (auto/); rs3 14:27 Pulse 68 MON; Pulse Ox 93% ; rs3 14:38 Pulse 64 MON; Pulse Ox 96% ; rs3 14:42 BP 136 / 75 (auto/); rs3 14:42 Pulse 68 MON; Pulse Ox 99% ; rs3 14:57 BP 129 / 68 (auto/); rs3 14:57 Pulse 62 MON; Pulse Ox 95% ; rs3 15:08 Pulse 62 MON; Pulse Ox 98% ; rs3 17:22 BP 128 / 99 (auto/); pml 17:24 Pulse 72 MON; Pulse Ox 88% ; pml 18:35 BP 134 / 71; Pulse 64; Resp 18; Temp 98.3; Pulse Ox 98% on R/A; pml 10:50 Body Mass Index 33.30 (88.00 kg, 162.56 cm) elp Vitals: 10:50 Log In Time: December 19, 2016 at 10:45. RN notified that patient meets Red Flag elp criteria. ED Course: 10:50 Patient visited by Aretha Suero PCA. elp 10:50 Petey Lopez is Private Physician. elp 10:50 Patient moved to Waiting elp 10:55 Patient moved to 5 elp 10:56 Susan Don MD is Attending Physician. fg 10:56 Patient visited by Susan Don MD. fg 11:06 Triage Initiated hs1 11:26 EKG done. (by ED staff). Reviewed by Susan Don MD. rn1 11:43 Eri Liriano RN is Primary Nurse. rs3 12:18 Patient visited by Eri Liriano RN. rs3 12:21 Inserted saline lock: 20 gauge in right antecubital area and blood collected. Labs rs3 drawn. (by ED staff). 12:24 Patient visited by Eri Liriano RN. rs3 12:46 [place] [place] Payment Agreement was scanned into [employer] and attached to record. mm15 13:03 Patient visited by Eri Liriano RN. rs3 13:36 Isabella Palafox assurance specialist. nq 13:39 Patient visited by Eri Liriano RN. rs3 14:40 Patient visited by Eri Liriano RN. rs3 15:10 Patient visited by Eri Liriano RN. rs3 15:49 Carlos Tomas MD is Hospitalizing Provider. fg 17:03 Patient moved to 20 dls 17:46 T-Sheet-- Draft Copy was scanned into [employer] and attached to record. klr 17:50 Patient visited by Mabel Rice RN. pml 18:35 The patient / caregiver is instructed regarding the plan of care and ED course. Patient pml has correct armband on for positive identification. Placed in gown. Bed in low position. Call light in reach. Side rails up X2. night monitor on. Pulse ox on. NIBP on. 18:35 No procedures done that require assistance. pml 12/20 19:23 ECG/EKG was scanned into [employer] and attached to record. kf3 Administered Medications: 12/19 11:56 Drug: Ondansetron 4 mg [ondansetron HCl 2 mg/mL intravenous solution (2 mL)] Route: rs3 IVP; Site: right antecubital; Point of Care Testing: Blood Glucose: 11:24 Blood Glucose: 75 mg/dL; rs3 Ranges: Order Results: Lab Order: Basic Metabolic Profile; SPEC'M 12/19/16 11:37 Test: GLUCOSE, FASTING; Value: 89; Range: 80-110; Units: MG/DL; Status: F Test: BLOOD UREA NITROGEN; Value: 69; Range: 7-18; Abnormal: Above high normal; Units: MG/DL; Status: F Test: CREATININE FOR GFR; Value: 7.77; Range: 0.55-1.02; Abnormal: Above high normal; Units: MG/DL; Status: F Test: GLOMERULAR FILTRATION RATE; Value: 5.6; Range: >45; Abnormal: Below low normal; Status: F Test: SODIUM LEVEL; Value: 146; Range: 136-145; Abnormal: Above high normal; Units: MEQ/L; Status: F Test: POTASSIUM SERUM; Value: 5.1; Range: 3.5-5.1; Units: MEQ/L; Status: F Test: CHLORIDE LEVEL; Value: 108; Range: 98-107; Abnormal: Above high normal; Units: MEQ/L; Status: F Test: CARBON DIOXIDE LEVEL; Value: 25; Range: 21-32; Units: MEQ/L; Status: F Test: ANION GAP; Value: 13; Range: 8-16; Units: MEQ/L; Status: F Test: CALCIUM LEVEL; Value: 9.5; Range: 8.8-10.2; Units: MG/DL; Status: F Test Note: ; Units are mL/min/1.73 m2 Chronic Kidney Disease Staging per NKF: Stage I & II GFR >=60 Normal to Mildly Decreased Stage III GFR 30-59 Moderately Decreased Stage IV GFR 15-29 Severely Decreased Stage V GFR <15 Very Little GFR Left ESRD GFR <15 on HOT MOLDER Lab Order: CBC with Diff; SPEC'M 12/19/16 11:37 Test: WHITE BLOOD COUNT; Value: 3.4; Range: 4.0-10.0; Abnormal: Below low normal; Units: K/mm3; Status: F Test: RED BLOOD COUNT; Value: 3.98; Range: 4.00-5.40; Abnormal: Below low normal; Units: M/mm3; Status: F Test: HEMOGLOBIN; Value: 11.5; Range: 12.0-16.0; Abnormal: Below low normal; Units: g/dl; Status: F Test: HEMATOCRIT; Value: 36.3; Range: 36.0-47.0; Units: %; Status: F Test: MEAN CORPUSCULAR VOLUME; Value: 91.0; Range: 80.0-96.0; Units: fl; Status: F Test: MEAN CORPUSCULAR HEMOGLOBIN; Value: 29.0; Range: 27.0-33.0; Units: pg; Status: F Test: MEAN CORPUSCULAR HGB CONC; Value: 31.8; Range: 32.0-36.5; Abnormal: Below low normal; Units: g/dl; Status: F Test: RED CELL DISTRIBUTION WIDTH; Value: 17.2; Range: 11.5-14.5; Abnormal: Above high normal; Units: %; Status: F Test: PLATELET COUNT, AUTOMATED; Value: 110; Range: 150-450; Abnormal: Below low normal; Units: k/mm3; Status: F Test: NEUTROPHILS %; Value: 70.8; Range: 36.0-66.0; Abnormal: Above high normal; Units: %; Status: F Test: LYMPH %; Value: 17.6; Range: 24.0-44.0; Abnormal: Below low normal; Units: %; Status: F Test: MONO %; Value: 6.6; Range: 0.0-5.0; Abnormal: Above high normal; Units: %; Status: F Test: EOS %; Value: 2.0; Range: 0.0-3.0; Units: %; Status: F Test: BASO %; Value: 0.8; Range: 0.0-1.0; Units: %; Status: F Test: LARGE UNSTAINED CELL %; Value: 2.2; Range: 0.0-4.0; Units: %; Status: F Test: NEUTROPHILS #; Value: 2.4; Range: 1.8-7.7; Units: K/mm3; Status: F Test: LYMPH #; Value: 0.7; Range: 1.5-4.5; Abnormal: Below low normal; Units: K/mm3; Status: F Test: MONO #; Value: 0.2; Range: 0.0-0.8; Units: K/mm3; Status: F Test: EOS #; Value: 0.1; Range: 0.0-0.50; Units: K/mm3; Status: F Test: BASO #; Value: 0.0; Range: 0.0-0.2; Units: K/mm3; Status: F Test: LARGE UNSTAINED CELL #; Value: 0.1; Range: 0.0-0.4; Units: K/mm3; Status: F Lab Order: Thyroid Stimulating Hormone; SPEC' 12/19/16 11:37 Test: THYROID STIMULATING HORMONE; Value: 1.370; Range: 0.358-3.740; Units: uIU/ML; Status: F Lab Order: Urinalysis; SPEC' 12/19/16 11:37 Test: APPEARANCE, URINE; Value: CLEAR; Range: CLEAR; Status: F Test: COLOR, URINE; Value: STRAW; Range: YELLOW; Status: F Test: PH,URINE; Value: 8.0; Range: 5.0-9.0; Units: UNITS; Status: F Test: SPECIFIC GRAVITY URINE AUTO; Value: 1.005; Range: 1.002-1.035; Status: F Test: PROTEIN, URINE AUTO; Value: NEGATIVE; Range: NEGATIVE; Units: mg/dL; Status: F Test: GLUCOSE, URINE (UA) AUTO; Value: 1+; Range: NEGATIVE; Abnormal: Above high normal; Units: mg/dL; Status: F Test: KETONE, URINE AUTO; Value: NEGATIVE; Range: NEGATIVE; Units: mg/dL; Status: F Test: UROBILINOGEN, URINE AUTO; Value: 0.2; Range: 0.0-2.0; Units: mg/dL; Status: F Test: BILIRUBIN, URINE AUTO; Value: NEGATIVE; Range: NEGATIVE; Status: F Test: NITRITE, URINE AUTO; Value: NEGATIVE; Range: NEGATIVE; Status: F Test: LEUKOCYTE ESTERASE, URINE AUTO; Value: TRACE; Range: NEGATIVE; Abnormal: Above high normal; Status: F Test: BLOOD, URINE BLOOD; Value: 1+; Range: NEGATIVE; Abnormal: Above high normal; Status: F Test: WBC, URINE AUTO; Value: 1; Range: 0-3; Units: /HPF; Status: F Test: RBC, URINE AUTO; Value: 0; Range: 0-3; Units: /HPF; Status: F Test: BACTERIA, URINE AUTO; Value: NEGATIVE; Range: NEGATIVE; Status: F Test: SQUAMOUS EPITHELIAL CELL UR AU; Value: 0; Range: 0-6; Units: /HPF; Status: F Test: HYALINE CAST, URINE AUTO; Value: 0; Range: 0-1; Units: /LPF; Status: F Lab Order: Fingerstick Blood Sugar; SPEC'M 12/19/16 11:16 Test: BEDSIDE GLUCOSE; Value: 75; Range: 80-115; Abnormal: Below low normal; Units: MG/DL; Status: F Outcome: 15:50 Decision to Hospitalize by Provider. fg 18:35 Discharge Assessment: Patient awake, alert and oriented x 3. No cognitive and/or pml functional deficits noted. Patient verbalized understanding of disposition instructions. patient administered narcotics - no. The following High Risk Discharge criteria are identified: None. Admitted to Med/Surg accompanied by tech, via wheelchair, with chart. Condition: good Condition: stable. Admission hand-off: Report called to Rakesh Ayala. Property :Personal belongings accompany Pt. 18:37 No special radiology studies were completed. pml 18:44 Patient left the ED. pml Signatures: Mary Pierre RN RN Krish Viveros, Reg Reg kf3 Heri,TRINIDAD Hwang RN rs3 Leena Albarran RN RN hs1 Mabel Rice RN RN pml Isabella Palafox Marlynn mm15 Aretha Suero PCA PCA elp Newman, Robert rn1 Susan Don MD MD fg Redder, Kathie klr Chart Complete MTDD
--- NOTE | 2016-12-21 19:45 | EDDOCDS ---
Physician Documentation [facility] Name: Cha Hensley Age: 61 yrs Sex: Female : 1955 Arrival Date: 12/19/2016 Time: 10:48 Bed 20 Private MD: Petey Lopez E. Disposition: 12/19/16 15:50 Hospitalization ordered by Carlos Tomas for Inpatient Admission. Preliminary diagnosis are Benign paroxysmal vertigo, End stage renal disease. - Bed requested for 4 [place]. - Status is Inpatient Admission. pml - Condition is Stable. - Problem is new. - Symptoms have improved. Historical: - Allergies: Adhesives (Rash); Antivert; aspartame (Rash); - Home Meds: 1. acetaminophen 325 mg Oral tab 2 tabs as needed as needed 2. Apidra 100 unit/mL subcutaneous soln twice a day per sliding sclae 3. biotin 1,000 mcg oral chew daily 4. calcitriol 0.25 mcg oral cap three times a day 5. Claritin 10 mg Oral tab 1 tab once daily as needed 6. Crestor 40 mg Oral tab 1 tab once daily 7. Dulcolax (bisacodyl) 10 MG CAP Rectal supp 1 suppository once daily as needed 8. Drisdol 5,000 units Oral twice a week 9. ferrous sulfate 324 mg (65 mg iron) Oral TbEC twice a day 10. Lantus 100 unit/mL Sub-Q soln 28 unit daily 11. Lovaza 1 gram oral cap 2 times per day 12. Nephro-Jess Rx 1-60-300 mg-mg-mcg oral tab 1 tab daily 13. Renvela 1600mg oral 3 times per day with meals 14. Senokot 8.6 mg Oral tab 1 tabs twice a day 15. Trilipix 135 mg oral cpDR 1 cap once daily 16. pregabalin 150 mg Oral cap 1 cap 2 times per day - PMHx: Chronic Renal Failure with dialysis; Diabetes - NIDDM: controlled; Diabetic Neuropathy; High Cholesterol; Sleep Apnea w/ CPAP; Vertigo; - PSHx: Cholecystectomy; Appendectomy; Hysterectomy; Orthopedic Surgery; fistula left arm; PD catheter; PD catheter removal (10/09/2016); - Family history: Not pertinent. - Social history: Smoking status: Patient uses tobacco products and is smoker, current status unknown. . - : The pt / caregiver states he / she is not on anticoagulants. Home medication list is obtained from the patient. - Exposure Risk Screening:: None identified. Vital Signs: 12/19 10:50 BP 162 / 72; Pulse 60; Resp 20; Temp 96.7(O); Pulse Ox 96% on R/A; Weight 88 kg / elp 194.01 lbs (R); Height 5 ft. 4 in. (162.56 cm) (R); Pain 10/10; 10:58 BP 156 / 71 Sitting (auto/); hs1 11:00 Pulse 66 MON; Pulse Ox 99% ; hs1 11:01 Pulse 64 MON; Pulse Ox 99% ; hs1 11:01 BP 152 / 69 Standing (auto/); hs1 11:27 BP 154 / 67 (auto/); rs3 11:27 Pulse 58 MON; Pulse Ox 100% ; rs3 11:40 Pulse 60 MON; Pulse Ox 100% ; rs3 11:42 BP 149 / 66 (auto/); rs3 11:57 BP 149 / 71 (auto/); rs3 11:57 Pulse 56 MON; Pulse Ox 99% ; rs3 12:12 BP 126 / 59 (auto/); rs3 12:12 Pulse 58 MON; Pulse Ox 97% ; rs3 12:27 BP 131 / 63 (auto/); rs3 12:27 Pulse 56 MON; Pulse Ox 99% ; rs3 12:51 BP 140 / 64 (auto/); rs3 12:52 Pulse 60 MON; Pulse Ox 95% ; rs3 12:57 BP 144 / 74 (auto/); rs3 12:59 Pulse 60 MON; Pulse Ox 100% ; rs3 13:14 BP 142 / 67 (auto/); rs3 13:17 Pulse 58 MON; Pulse Ox 99% ; rs3 13:27 BP 139 / 63 (auto/); rs3 13:27 Pulse 58 MON; Pulse Ox 99% ; rs3 13:37 Pulse 58 MON; Pulse Ox 94% ; rs3 13:42 BP 143 / 65 (auto/); rs3 13:42 Pulse 60 MON; Pulse Ox 98% ; rs3 13:57 BP 142 / 67 (auto/); rs3 13:57 Pulse 60 MON; Pulse Ox 95% ; rs3 14:09 Pulse 64 MON; Pulse Ox 92% ; rs3 14:12 BP 136 / 63 (auto/); rs3 14:27 BP 130 / 62 (auto/); rs3 14:27 Pulse 68 MON; Pulse Ox 93% ; rs3 14:38 Pulse 64 MON; Pulse Ox 96% ; rs3 14:42 BP 136 / 75 (auto/); rs3 14:42 Pulse 68 MON; Pulse Ox 99% ; rs3 14:57 BP 129 / 68 (auto/); rs3 14:57 Pulse 62 MON; Pulse Ox 95% ; rs3 15:08 Pulse 62 MON; Pulse Ox 98% ; rs3 17:22 BP 128 / 99 (auto/); pml 17:24 Pulse 72 MON; Pulse Ox 88% ; pml 18:35 BP 134 / 71; Pulse 64; Resp 18; Temp 98.3; Pulse Ox 98% on R/A; pml 10:50 Body Mass Index 33.30 (88.00 kg, 162.56 cm) elp MDM: 10:57 Management Scientist/Pulse Ox/q 15 min VS ordered. fg 10:57 Accucheck ordered. fg 10:57 IV Saline Lock ordered. fg 10:57 Orthostatic VS ordered. fg 10:57 Rhythm Strip to chart ordered. fg 10:58 Basic Metabolic Profile Ordered. EDMS 10:58 CBC with Diff Ordered. EDMS 10:58 Thyroid Stimulating Hormone Ordered. EDMS 10:58 Urinalysis Ordered. EDMS 10:58 Urine Culture Ordered. EDMS 10:59 ECG WITH READING ER PHYS+CARDIAG ordered. EDMS 11:15 Ondansetron 4 mg IVP once ordered. fg 12:39 Financial registration complete. mm15 12:46 [facility] [place] Payment Agreement was scanned into [employer] and attached to record. mm15 13:58 BED REQUEST+ADM ordered. EDMS 17:46 T-Sheet-- Draft Copy was scanned into [employer] and attached to record. klr 17:50 Admission / Observation Status ordered. EDMS 17:50 CONSISTENT CARBOHYDRATES ordered. EDMS 17:50 NO ADDED SALT DIET ordered. EDMS 17:50 2 GRAM SODIUM DIET ordered. EDMS 12/20 19:23 ECG/EKG was scanned into [employer] and attached to record. kf3 Point of Care Testing: Blood Glucose: 12/19 11:24 Blood Glucose: 75 mg/dL; rs3 Ranges: Administered Medications: 11:56 Drug: Ondansetron 4 mg [ondansetron HCl 2 mg/mL intravenous solution (2 mL)] Route: rs3 IVP; Site: right antecubital; Signatures: Dispatcher [employer] Neetu Mckeon RN Krish Muniz, Reg Reg kf3 Eri Liriano RN RN rs3 Mabel Rice RN RN pml McGrath, Marlynn mm15 Susan Don MD MD fg Redder, Kathie klr The chart was reviewed and I authenticate all verbal orders and agree with the evaluation and treatment provided.Attachments: 12:46 [facility] Payment Agreement mm15 17:46 T-Sheet-- Draft Copy r 12/20 19:23 ECG/EKG kf3 Chart Complete MTDD
--- NOTE | 2016-12-21 19:45 | EDDOCDS ---
Physician Documentation [facility] Name: Cha Hensley Age: 61 yrs Sex: Female : 1955 Arrival Date: 12/19/2016 Time: 10:48 Bed 20 Private MD: Petey Lopez E. Disposition: 12/19/16 15:50 Hospitalization ordered by Carlos Tomas for Inpatient Admission. Preliminary diagnosis are Benign paroxysmal vertigo, End stage renal disease. - Bed requested for 4 [place]. - Status is Inpatient Admission. pml - Condition is Stable. - Problem is new. - Symptoms have improved. Historical: - Allergies: Adhesives (Rash); Antivert; aspartame (Rash); - Home Meds: 1. acetaminophen 325 mg Oral tab 2 tabs as needed as needed 2. Apidra 100 unit/mL subcutaneous soln twice a day per sliding sclae 3. biotin 1,000 mcg oral chew daily 4. calcitriol 0.25 mcg oral cap three times a day 5. Claritin 10 mg Oral tab 1 tab once daily as needed 6. Crestor 40 mg Oral tab 1 tab once daily 7. Dulcolax (bisacodyl) 10 MG CAP Rectal supp 1 suppository once daily as needed 8. Drisdol 5,000 units Oral twice a week 9. ferrous sulfate 324 mg (65 mg iron) Oral TbEC twice a day 10. Lantus 100 unit/mL Sub-Q soln 28 unit daily 11. Lovaza 1 gram oral cap 2 times per day 12. Nephro-Jess Rx 1-60-300 mg-mg-mcg oral tab 1 tab daily 13. Renvela 1600mg oral 3 times per day with meals 14. Senokot 8.6 mg Oral tab 1 tabs twice a day 15. Trilipix 135 mg oral cpDR 1 cap once daily 16. pregabalin 150 mg Oral cap 1 cap 2 times per day - PMHx: Chronic Renal Failure with dialysis; Diabetes - NIDDM: controlled; Diabetic Neuropathy; High Cholesterol; Sleep Apnea w/ CPAP; Vertigo; - PSHx: Cholecystectomy; Appendectomy; Hysterectomy; Orthopedic Surgery; fistula left arm; PD catheter; PD catheter removal (10/09/2016); - Family history: Not pertinent. - Social history: Smoking status: Patient uses tobacco products and is smoker, current status unknown. . - : The pt / caregiver states he / she is not on anticoagulants. Home medication list is obtained from the patient. - Exposure Risk Screening:: None identified. Vital Signs: 12/19 10:50 BP 162 / 72; Pulse 60; Resp 20; Temp 96.7(O); Pulse Ox 96% on R/A; Weight 88 kg / elp 194.01 lbs (R); Height 5 ft. 4 in. (162.56 cm) (R); Pain 10/10; 10:58 BP 156 / 71 Sitting (auto/); hs1 11:00 Pulse 66 MON; Pulse Ox 99% ; hs1 11:01 Pulse 64 MON; Pulse Ox 99% ; hs1 11:01 BP 152 / 69 Standing (auto/); hs1 11:27 BP 154 / 67 (auto/); rs3 11:27 Pulse 58 MON; Pulse Ox 100% ; rs3 11:40 Pulse 60 MON; Pulse Ox 100% ; rs3 11:42 BP 149 / 66 (auto/); rs3 11:57 BP 149 / 71 (auto/); rs3 11:57 Pulse 56 MON; Pulse Ox 99% ; rs3 12:12 BP 126 / 59 (auto/); rs3 12:12 Pulse 58 MON; Pulse Ox 97% ; rs3 12:27 BP 131 / 63 (auto/); rs3 12:27 Pulse 56 MON; Pulse Ox 99% ; rs3 12:51 BP 140 / 64 (auto/); rs3 12:52 Pulse 60 MON; Pulse Ox 95% ; rs3 12:57 BP 144 / 74 (auto/); rs3 12:59 Pulse 60 MON; Pulse Ox 100% ; rs3 13:14 BP 142 / 67 (auto/); rs3 13:17 Pulse 58 MON; Pulse Ox 99% ; rs3 13:27 BP 139 / 63 (auto/); rs3 13:27 Pulse 58 MON; Pulse Ox 99% ; rs3 13:37 Pulse 58 MON; Pulse Ox 94% ; rs3 13:42 BP 143 / 65 (auto/); rs3 13:42 Pulse 60 MON; Pulse Ox 98% ; rs3 13:57 BP 142 / 67 (auto/); rs3 13:57 Pulse 60 MON; Pulse Ox 95% ; rs3 14:09 Pulse 64 MON; Pulse Ox 92% ; rs3 14:12 BP 136 / 63 (auto/); rs3 14:27 BP 130 / 62 (auto/); rs3 14:27 Pulse 68 MON; Pulse Ox 93% ; rs3 14:38 Pulse 64 MON; Pulse Ox 96% ; rs3 14:42 BP 136 / 75 (auto/); rs3 14:42 Pulse 68 MON; Pulse Ox 99% ; rs3 14:57 BP 129 / 68 (auto/); rs3 14:57 Pulse 62 MON; Pulse Ox 95% ; rs3 15:08 Pulse 62 MON; Pulse Ox 98% ; rs3 17:22 BP 128 / 99 (auto/); pml 17:24 Pulse 72 MON; Pulse Ox 88% ; pml 18:35 BP 134 / 71; Pulse 64; Resp 18; Temp 98.3; Pulse Ox 98% on R/A; pml 10:50 Body Mass Index 33.30 (88.00 kg, 162.56 cm) elp MDM: 10:57 Process Control Technician/Pulse Ox/q 15 min VS ordered. fg 10:57 Accucheck ordered. fg 10:57 IV Saline Lock ordered. fg 10:57 Orthostatic VS ordered. fg 10:57 Rhythm Strip to chart ordered. fg 10:58 Basic Metabolic Profile Ordered. EDMS 10:58 CBC with Diff Ordered. EDMS 10:58 Thyroid Stimulating Hormone Ordered. EDMS 10:58 Urinalysis Ordered. EDMS 10:58 Urine Culture Ordered. EDMS 10:59 ECG WITH READING ER PHYS+CARDIAG ordered. EDMS 11:15 Ondansetron 4 mg IVP once ordered. fg 12:39 Financial registration complete. mm15 12:46 [facility] Payment Agreement was scanned into VTEX and attached to record. mm15 13:58 BED REQUEST+ADM ordered. EDMS 17:46 T-Sheet-- Draft Copy was scanned into VTEX and attached to record. klr 17:50 Admission / Observation Status ordered. EDMS 17:50 CONSISTENT CARBOHYDRATES ordered. EDMS 17:50 NO ADDED SALT DIET ordered. EDMS 17:50 2 GRAM SODIUM DIET ordered. EDMS 12/20 19:23 ECG/EKG was scanned into VTEX and attached to record. kf3 Point of Care Testing: Blood Glucose: 12/19 11:24 Blood Glucose: 75 mg/dL; rs3 Ranges: Administered Medications: 11:56 Drug: Ondansetron 4 mg [ondansetron HCl 2 mg/mL intravenous solution (2 mL)] Route: rs3 IVP; Site: right antecubital; Signatures: Dispatcher [employer] Neetu Mckeon RN Krish Muniz, Reg Reg kf3 Eri Liriano RN RN rs3 Mabel Rice RN RN pml McGrath, Marlynn mm15 Susan Don MD MD fg Redder, Kathie klr The chart was reviewed and I authenticate all verbal orders and agree with the evaluation and treatment provided.Attachments: 12:46 [facility] Payment Agreement mm15 17:46 T-Sheet-- Draft Copy r 12/20 19:23 ECG/EKG kf3 Chart Complete MTDD
== END 2016-12-20 13:03 | disposition home or self-care (01) ==
LOC: M ED 10:48 → M ED INP 17:39 → M MSPAV 18:46
PROVIDERS: ADMIT Family Medicine; ATTEND Family Medicine
DX: N18.6 End stage renal disease (principal); D63.1 Anemia in chronic kidney disease; N25.81 Secondary hyperparathyroidism of renal origin; E11.42 Type 2 diabetes mellitus with diabetic polyneuropathy; G47.33 Obstructive sleep apnea (adult) (pediatric); E66.01 Morbid (severe) obesity due to excess calories; L73.2 Hidradenitis suppurativa; E78.5 Hyperlipidemia, unspecified; K21.9 Gastro-esophageal reflux disease without esophagitis; E55.9 Vitamin D deficiency, unspecified; M10.9 Gout, unspecified; I50.30 Unspecified diastolic (congestive) heart failure; I35.0 Nonrheumatic aortic (valve) stenosis; M48.02 Spinal stenosis, cervical region; Z86.711 Personal history of pulmonary embolism; I12.9 Hypertensive chronic kidney disease with stage 1 through stage 4 chronic kidney disease, or unspecified chronic kidney disease; F41.9 Anxiety disorder, unspecified; Z99.2 Dependence on renal dialysis; Z79.899 Other long term (current) drug therapy; Z79.4 Long term (current) use of insulin
CPT/HCPCS: 36415; 80048; 80069; 81001; 84443; 85025; 87088; 87186; 93005; 93041; 96374; 99285; G0378; J2405

== ENCOUNTER → 2017-01-26 | Outpatient (REF) | payer MEDICARE, OTHER ==
[~2017-01-26] MED LIST changes: +ACET500C PO; +BIOT10005 PO; +ROPI0.25 PO
== END ==
LOC: M LAB REF 17:21
PROVIDERS: ATTEND Internal Medicine Nephrology
DX: N39.0 Urinary tract infection, site not specified (principal)

== ENCOUNTER 2017-03-02 17:06 | Emergency (ER) | payer MEDICARE, OTHER ==
[~2017-03-02] VITALS: Ht 165.1 cm; Wt 89.4 kg
[~2017-03-02 17:06] MED LIST changes: -TRIL135C PO; +TRIL135C6 PO
[2017-03-02] MEDS ORDERED: RENATAB5 PO (17:20)
[2017-03-02 18:13] LABS: BASO % 0.7 % (0.0-1.0); EOS # 0.1 K/mm3 (0.0-0.50); EOS % 3.8 % (0.0-3.0); LARGE UNSTAINED CELL # 0.1 K/mm3 (0.0-0.4); LARGE UNSTAINED CELL % 1.7 % (0.0-4.0); LYMPH # 0.7 K/mm3 (1.5-4.5); LYMPH % 21.1 % (24.0-44.0); MEAN CORPUSCULAR HEMOGLOBIN 29.1 pg (27.0-33.0); MEAN CORPUSCULAR HGB CONC 32.7 g/dl (32.0-36.5); MEAN CORPUSCULAR VOLUME 89.1 fl (80.0-96.0); MONO # 0.2 K/mm3 (0.0-0.8); MONO % 7.5 % (0.0-5.0); NEUTROPHILS # 2.1 K/mm3 (1.8-7.7); NEUTROPHILS % 65.2 % (36.0-66.0); PLATELET COUNT, AUTOMATED 117 k/mm3 (150-450); RED CELL DISTRIBUTION WIDTH 15.4 % (11.5-14.5); WHITE BLOOD COUNT 3.2 K/mm3 (4.0-10.0)
--- NOTE | 2017-03-02 18:23 | REP ---
PA and lateral chest: Comparisons 02/11/2016. There is chronic cardiomegaly, unchanged. There are no infiltrates, effusions or masses. The yvonne, mediastinum, and bony thorax are unchanged. There are surgical clips in the abdomen, unchanged. Impression: Chronic cardiomegaly. There are no acute cardiopulmonary findings. Signed by Jose Juan Galvin MD 03/02/2017 06:15 P
[2017-03-02 18:45] LABS: CALCIUM LEVEL 9.1 MG/DL (8.8-10.2); CREATININE FOR GFR 5.04 MG/DL (0.55-1.02); GLOMERULAR FILTRATION RATE 9.2 (>45); POTASSIUM SERUM 3.8 MEQ/L (3.5-5.1)
[2017-03-02] MEDS ORDERED: CIPROFLOXACIN 250 MG TAB PO ONE (22:45)
[2017-03-02] MEDS ORDERED: CIPR500T89 PO (23:04)
[2017-03-02 23:12] VITALS: BP 161/76
--- NOTE | 2017-03-03 13:46 | ECGEPIP ---
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
== END 2017-03-02 23:14 | disposition home or self-care (01) ==
LOC: M ED 19:44
DX: N39.0 Urinary tract infection, site not specified (principal); E78.5 Hyperlipidemia, unspecified; Z86.711 Personal history of pulmonary embolism; Z79.899 Other long term (current) drug therapy; Z88.8 Allergy status to other drugs, medicaments and biological substances; Z91.02 Food additives allergy status; Z79.4 Long term (current) use of insulin; E11.42 Type 2 diabetes mellitus with diabetic polyneuropathy; I95.9 Hypotension, unspecified; G47.30 Sleep apnea, unspecified; N18.6 End stage renal disease; E55.9 Vitamin D deficiency, unspecified; M48.00 Spinal stenosis, site unspecified

== ENCOUNTER → 2017-03-05 | Outpatient (CLI) | payer MEDICARE, OTHER ==
[~2017-03-05] MED LIST changes: +CIPR500T89 PO; +RENATAB5 PO
--- NOTE | 2017-03-05 11:13 | REPMRS ---
Patient History The patient states she has not had a clinical breast exam in over a year. Patient is postmenopausal. Family history of breast cancer in maternal aunt under age 50. 2 benign stereotatic breast biopsies of the right breast, October 29, 2008. Digital Woman Screen Mammo: March 05, 2017 - Exam #: [id number] Bilateral CC and MLO view(s) were taken. Technologist: Vilma Andrade, Technologist Prior study comparison: February 03, 2016, digital woman screen mammo performed at [facility]. February 13, 2015, digital woman screen mammo performed at [facility]. FINDINGS: There are scattered fibroglandular densities. There has been no change in the appearance of the mammogram from the prior studies. There is a mild amount of residual fibroglandular tissue which is fairly symmetric. There is no interval development of dominant mass, architectural distortion, or clustered microcalcification suggestive of malignancy. ASSESSMENT: BI-RADS/ACR category 1 mammogram. Negative. Recommendation Routine screening mammogram in 1 year (for women over age 40). This mammogram was interpreted with the aid of an FDA-approved computer-aided dectection system. Electronically Signed By: Jose Juan Cheung MD 03/05/17 [id number]
== END ==
LOC: M WHC 09:50
PROVIDERS: ATTEND Family Medicine
DX: Z12.31 Encounter for screening mammogram for malignant neoplasm of breast (principal); Z78.0 Asymptomatic menopausal state

== ENCOUNTER → 2017-03-12 | Outpatient (REF) | payer MEDICARE, OTHER ==
[2017-03-12 12:54] LABS: CHOLESTEROL LEVEL 99 MG/DL (<200); TRIGLYCERIDES LEVEL 129 MG/DL (<150)
== END ==
LOC: M SFHCPLAZ 08:35
PROVIDERS: ATTEND Family Medicine
DX: E78.2 Mixed hyperlipidemia (principal); E11.29 Type 2 diabetes mellitus with other diabetic kidney complication

== ENCOUNTER → 2017-04-29 | Outpatient (REF) | payer MEDICARE, OTHER | LOC: M LAB REF 17:09 | PROVIDERS: ATTEND Internal Medicine Nephrology | DX: N39.0 Urinary tract infection, site not specified (principal) ==

== ENCOUNTER → 2017-05-10 | Outpatient (REF) | payer MEDICARE, OTHER | LOC: M LAB REF 13:23 | PROVIDERS: ATTEND Internal Medicine Nephrology | DX: N39.0 Urinary tract infection, site not specified (principal); N18.6 End stage renal disease ==

== ENCOUNTER 2017-06-03 19:17 | Emergency (ER) | payer MEDICARE, OTHER ==
[~2017-06-03] VITALS: Ht 163.8 cm; Wt 92.3 kg
[~2017-06-03 19:17] MED LIST changes: -ATOR1TAB18 PO; +ATOR80TA59 PO; -BIOT10005 PO; +BIOT10008 PO; +CIPR-249 PO; -CIPR500T89 PO; -DOCU100C PO; +DOCU100C16 PO; +FERR1TAB8 PO; +LEVA1TAB PO; -LEVA250T PO; +MOBI4TAB PO; -MOBI7.5T10 PO; -SENO8.6T2 PO; +SENO8.6T5 PO
[2017-06-03] MEDS ORDERED: MORPHINE 2 MG/ML 1ML SYRINGE IV ONE (19:30)
[2017-06-03] MEDS ORDERED: ONDANSETRON 4MG/2ML VIAL (J2405) As Ordered ONE (19:47)
[2017-06-03] MEDS ORDERED: PERC5TAB12 PO (19:51)
[2017-06-03 19:54] VITALS: BP 132/67
--- NOTE | 2017-06-03 19:58 | REP ---
LEFT ANKLE SERIES: Four views of the left ankle are performed. There is a nondisplaced fracture at the base of the 5th metatarsal. No other acute fracture or dislocation is seen. There appears to be an old avulsion fracture of the medial malleolus. The ankle mortise is anatomic. There is moderate inferior calcaneal spurring. Diffuse vascular calcifications are present. IMPRESSION: Nondisplaced fracture base of 5th metatarsal. Signed by Jose Juan Cheung MD 06/04/2017 05:20 P
[2017-06-03] MEDS ORDERED: ONDANSETRON 4MG/2ML VIAL (J2405) IV ONE (20:00)
--- NOTE | 2017-06-03 20:02 | REP ---
LEFT FOOT SERIES: Four views of the left foot are performed. There is a nondisplaced fracture of the base of the 5th metatarsal. There is moderate inferior calcaneal spurring. There are diffuse vascular calcifications in the soft tissues. IMPRESSION: Nondisplaced fracture base of 5th metatarsal. Signed by Jose Juan Cheung MD 06/04/2017 05:20 P
== END 2017-06-03 20:32 | disposition home or self-care (01) ==
LOC: M ED 19:17
DX: S92.355A Nondisplaced fracture of fifth metatarsal bone, left foot, initial encounter for closed fracture (principal); X50.1XXA Overexertion from prolonged static or awkward postures, initial encounter; Y92.099 Unspecified place in other non-institutional residence as the place of occurrence of the external cause; Y93.9 Activity, unspecified; Y99.9 Unspecified external cause status; Z79.899 Other long term (current) drug therapy; Z91.02 Food additives allergy status; Z91.89 Other specified personal risk factors, not elsewhere classified; Z88.5 Allergy status to narcotic agent; Z88.8 Allergy status to other drugs, medicaments and biological substances
CPT/HCPCS: 73610; 73630; 96374; 96375; 99283; J2405

== ENCOUNTER → 2017-07-16 | Outpatient (REF) | payer MEDICARE, OTHER ==
[~2017-07-16] MED LIST changes: +PERC5TAB12 PO
[2017-07-16 12:21] LABS: ALBUMIN 2.9 GM/DL (3.2-5.2); ALBUMIN/GLOBULIN RATIO 0.85 (1.00-1.93); BILIRUBIN,TOTAL 0.5 MG/DL (0.2-1.0); CALCIUM LEVEL 9.2 MG/DL (8.8-10.2); CREATININE FOR GFR 6.7 MG/DL (0.55-1.02); GLOMERULAR FILTRATION RATE 6.6 (>45); POTASSIUM SERUM 4.5 MEQ/L (3.5-5.1); TOTAL PROTEIN 6.3 GM/DL (6.4-8.2)
[2017-07-16 14:22] LABS: PRETREATED FOLATE FOR RBCFOL > 24.0 NG/ML
== END ==
LOC: M SFHCPLAZ 08:25
PROVIDERS: ATTEND Family Medicine
DX: E78.2 Mixed hyperlipidemia (principal); E11.29 Type 2 diabetes mellitus with other diabetic kidney complication; D50.9 Iron deficiency anemia, unspecified

== ENCOUNTER → 2017-08-05 | Outpatient (REF) | payer MEDICARE, OTHER | LOC: M LAB REF 13:26 | PROVIDERS: ATTEND Internal Medicine Nephrology | DX: N39.0 Urinary tract infection, site not specified (principal); N18.6 End stage renal disease ==

== ENCOUNTER → 2017-09-08 | Outpatient (CLI) | payer MEDICARE, OTHER ==
--- NOTE | 2017-09-08 16:10 | REP ---
CT of the left ankle: Comparison is the plain film study dated 06/03/2017. Axial images are acquired helical scanning and a reformatted sagittal coronal projections. There are multiple small ossicles at the tip of the medial malleolus. These ossicles are well corticated and could represent accessory ossicles or old avulsion. No evidence of acute avulsion at the tip of the medial malleolus is identified. There is a small calcification at the medial margin of the sustentaculum which could also be an accessory ossicle or old avulsion. The distal fibula is unremarkable. The ankle mortise is symmetric. The tibiotalar articulation and subtalar articulation are unremarkable. There is a calcaneal plantar spur. Impression: No evidence of acute or healing fracture. There are multiple small well corticated ossicles adjacent to the tip of the medial malleolus, accessory ossicles versus avulsions, likely old. There is a small calcification at the medial margin of the sustentaculum with similar diagnostic considerations, accessory ossicle versus old avulsion. Signed by Jose Juan Galvin MD 09/08/2017 04:01 P
--- NOTE | 2017-09-08 16:15 | REP ---
CT of the left foot: Comparison is the plain film study dated 06/03/2079 where there was a nondisplaced fracture at the base of the fifth digit metatarsal. CT study today is acquired with helical scanning and a reformatted sagittal coronal projections. The lucent fracture line persists at the base of the fifth digit metatarsal This may represent delayed healing or fibrous union. There is no displacement. There is no dislocation. There are no calcifications or foreign bodies. Impression: Persisting nondisplaced lucent fracture line at the base of the fifth digit metatarsal, delayed healing versus fibrous union. Signed by Jose Juan Galvin MD 09/08/2017 04:07 P
== END ==
LOC: M RAD 14:46
PROVIDERS: ATTEND Physician Assistant Surgical
DX: S92.355D Nondisplaced fracture of fifth metatarsal bone, left foot, subsequent encounter for fracture with routine healing (principal)

== ENCOUNTER → 2017-10-18 | Outpatient (REF) | payer MEDICARE, OTHER ==
[2017-10-18 12:42] LABS: ALBUMIN/GLOBULIN RATIO 0.97 (1.00-1.93); ALKALINE PHOSPHATASE 58 U/L (45-117); ALT/SGPT 22 U/L (12-78); ANION GAP 11 MEQ/L (8-16); AST/SGOT 27 U/L (7-37); BILIRUBIN,TOTAL 0.4 MG/DL (0.2-1.0); BLOOD UREA NITROGEN 63 MG/DL (7-18); CALCIUM LEVEL 9.4 MG/DL (8.8-10.2); CARBON DIOXIDE LEVEL 27 MEQ/L (21-32); CHLORIDE LEVEL 105 MEQ/L (98-107); CHOLESTEROL LEVEL 99 MG/DL (<200); CREATININE FOR GFR 9.28 MG/DL (0.55-1.02); FREE T4 0.98 NG/DL (0.76-1.46); GLOMERULAR FILTRATION RATE 4.6 (>45); GLUCOSE, FASTING 78 MG/DL (80-110); SODIUM LEVEL 143 MEQ/L (136-145); TOTAL PROTEIN 6.1 GM/DL (6.4-8.2); TRIGLYCERIDES LEVEL 146 MG/DL (<150)
== END ==
LOC: M SFHCPLAZ 07:47
PROVIDERS: ATTEND Family Medicine
DX: E78.2 Mixed hyperlipidemia (principal); E11.29 Type 2 diabetes mellitus with other diabetic kidney complication

== ENCOUNTER → 2017-10-26 | Outpatient (CLI) | payer MEDICARE, OTHER ==
[~2017-10-26] MED LIST changes: +HEPARIN 1,000 UNITS/ML 10ML VIAL (FOR RADIOLOGY& DIALYSIS ONLY) As Ordered ONE; +ISOVUE-300 61% 50ML VIAL (Q9967) As Ordered ONE; +MIDAZOLAM INJ 2 MG/2 ML VIAL (J2250) As Ordered ONE; +fentaNYL 100 MCG/2 ML INJECTION (J3010) As Ordered ONE
--- NOTE | 2017-11-10 11:03 | REPIR ---
DATE OF PROCEDURE: 10/26/2017 PREPROCEDURE DIAGNOSES: Endstage renal disease. Dysfunctional left radiocephalic arteriovenous fistula. POSTPROCEDURE DIAGNOSES: Endstage renal disease. Dysfunctional left radiocephalic arteriovenous fistula. PROCEDURE: Ultrasound guided cannulation of the left radiocephalic arteriovenous fistula. Placement of two sheaths within the left radiocephalic arteriovenous fistula. Selective left radial artery catheter placement with angiogram runoff. Left radial artery angioplasty with 5 x 100 balloon. Left cephalic vein angioplasty with 5 x 100 balloon. SURGEON: Dr. Harsh Iqbal. FLOWER GROWER: Guerline Soto. ANESTHESIA: Local with sedation with 1 mg versed, 50 mcg fentanyl and 2 mL of 2% lidocaine. Sedation time 1415 to 1435 for a total of 20 minutes with the sedation and cardiopulmonary monitoring performed by the RN in the room under my direct supervision. I was present for and directed the entire case. CONTRAST: 3 mL. FLUORO TIME: 0.222 minutes. COMPLICATION: None. DRAINS: None. SPECIMENS: None. IMPLANTS: None. INDICATION: The patient is a 62-year-old female with a left radiocephalic arteriovenous fistula which has been non-maturing and unable to be used for dialysis without difficulty. The patient will undergo a fistulogram with possible angioplasty and stent. Risks, benefits and alternative treatment options were discussed with the patient. DESCRIPTION OF PROCEDURE: The patient was taken to the angiography suite and placed supine on the angiography table and then prepped and draped in the standard surgical fashion. Ultrasound was used to guide cannulation of the left radiocephalic arteriovenous fistula due to the small size of the vein. The ultrasound showed the vein to be easily compressible, widely patent and free of thrombus. Ultrasound was used to guide cannulation with real-time concurrent visualization of the entry of the needle into the cephalic vein with a hard copy image preserved. The micropuncture wire was advanced using micropuncture needle which was upsized to micropuncture sheath. A fistulogram was performed through the sheath showing sluggish flow through the fistula. A retrograde radial artery angiogram was performed showing a high-grade stenosis at the arteriovenous anastomosis. A second cannulation was performed with ultrasound directed towards the arteriovenous anastomosis. A catheter placed in the radial artery and a radial artery angiogram with runoff performed showing the high-grade stenosis after which the left radial artery and cephalic vein were angioplastied with a 5 x 100 balloon. A completion radial artery angiogram with runoff showed resolution of the stenosis with improved flow through the fistula. The two sheaths were removed and #2-0 Prolene sutures placed at the puncture sites for hemostasis. Dressing were then applied. The patient tolerated the procedure well. All instrument, sponge and needle counts were correct at the end of the case. There were no complications. Dr. Iqbal was present for and directed the entire case. The patient was transferred to the holding area and subsequently discharge in stable condition. RADIOLOGIC SUPERVISION INTERPRETATION: Ultrasound was used to guide cannulation of the cephalic vein twice. A radial artery angiogram showed high grade stenosis in the arteriovenous anastomosis which was angioplastied with a 5 x 100 balloon with followup angiograph showing resolution of the stenosis.
== END | disposition home or self-care (01) ==
LOC: M IRPRO 12:24
PROVIDERS: ATTEND Surgery Vascular Surgery
DX: T82.858A Stenosis of other vascular prosthetic devices, implants and grafts, initial encounter (principal); N18.6 End stage renal disease
CPT/HCPCS: 36902; 76937; 99152; C1725; C1769; C1887; C1894; J2250; J3010; Q9967

== ENCOUNTER → 2018-03-09 | Outpatient (CLI) | payer MEDICARE, OTHER | LOC: M WHC 09:13 | DX: E55.9 Vitamin D deficiency, unspecified (principal); Z78.0 Asymptomatic menopausal state | CPT/HCPCS: 77080 ==

== ENCOUNTER → 2018-05-02 | Outpatient (CLI) | payer MEDICARE, OTHER | LOC: M WHC 10:17 | DX: Z12.31 Encounter for screening mammogram for malignant neoplasm of breast (principal) | CPT/HCPCS: 77067 ==

== ENCOUNTER → 2018-05-12 | Outpatient (REF) | payer MEDICARE, OTHER ==
[2018-05-12 14:27] LABS: APPEARANCE, URINE HAZY (CLEAR); BACTERIA, URINE AUTO 1+ (NEGATIVE); BILIRUBIN, URINE AUTO NEGATIVE (NEGATIVE); BLOOD, URINE BLOOD 1+ (NEGATIVE); COLOR, URINE YELLOW (YELLOW); GLUCOSE, URINE (UA) AUTO 1+ mg/dL (NEGATIVE); KETONE, URINE AUTO NEGATIVE (NEGATIVE); LEUKOCYTE ESTERASE, URINE AUTO 3+ (NEGATIVE); NITRITE, URINE AUTO NEGATIVE (NEGATIVE); PROTEIN, URINE AUTO 1+ mg/dL (NEGATIVE); RBC, URINE AUTO 2 /HPF (0-3); SPECIFIC GRAVITY URINE AUTO 1.006 (1.002-1.035); SQUAMOUS EPITHELIAL CELL UR AU 1 /HPF (0-6); UROBILINOGEN, URINE AUTO 0.2 mg/dL (0.0-2.0); WBC, URINE AUTO 13 /HPF (0-3)
== END ==
LOC: M LAB REF 13:16
DX: N39.0 Urinary tract infection, site not specified (principal); N18.6 End stage renal disease
CPT/HCPCS: 81001

== ENCOUNTER 2018-06-01 14:15 | Emergency (ER) | payer MEDICARE, OTHER ==
[2018-06-01 15:46] LABS: BASO % 0.3 % (0.0-1.0); EOS # 0.2 10^3/uL (0.0-0.50); HEMATOCRIT 31.5 % (36.0-47.0); HEMOGLOBIN 10.1 g/dl (12.0-15.5); IMMATURE GRANULOCYTE % 0.3 % (0-3.0); LYMPH # 1.1 10^3/uL (1.5-4.5); LYMPH % 17.6 % (24.0-44.0); MEAN CORPUSCULAR HEMOGLOBIN 28.5 pg (27.0-33.0); MEAN CORPUSCULAR HGB CONC 32.1 g/dl (32.0-36.5); MONO # 0.7 10^3/uL (0.0-0.8); MONO % 10.8 % (0.0-5.0); PLATELET COUNT, AUTOMATED 160 10^3/uL (150-450); RED BLOOD COUNT 3.54 10^6/uL (4.00-5.40); RED CELL DISTRIBUTION WIDTH 15.8 % (11.5-14.5)
[2018-06-01] MEDS: LORazepam 2 MG/ML VIAL (J2060) IV ×2 (15:50→18:30)
[2018-06-01 16:10] LABS: ALBUMIN 2.6 GM/DL (3.2-5.2); ALBUMIN/GLOBULIN RATIO 0.67 (1.00-1.93); ALKALINE PHOSPHATASE 130 U/L (45-117); ALT/SGPT 35 U/L (12-78); ANION GAP 12 MEQ/L (8-16); AST/SGOT 30 U/L (7-37); BILIRUBIN,DIRECT 0.1 MG/DL (0.0-0.2); BILIRUBIN,TOTAL 0.4 MG/DL (0.2-1.0); BLOOD UREA NITROGEN 54 MG/DL (7-18); CALCIUM LEVEL 9.4 MG/DL (8.8-10.2); CARBON DIOXIDE LEVEL 24 MEQ/L (21-32); CHLORIDE LEVEL 107 MEQ/L (98-107); GLOMERULAR FILTRATION RATE 5.1 (>45); GLUCOSE, FASTING 106 MG/DL (70-100); LIPASE 427 U/L (73-393); MAGNESIUM LEVEL 2.2 MG/DL (1.8-2.4); PHOSPHORUS LEVEL 2.3 MG/DL (2.5-4.9); POTASSIUM SERUM 4.1 MEQ/L (3.5-5.1); SODIUM LEVEL 143 MEQ/L (136-145); TOTAL PROTEIN 6.5 GM/DL (6.4-8.2)
[2018-06-01 16:13] LABS: CREATININE FOR GFR 8.33 MG/DL (0.55-1.30)
[2018-06-03 10:41] LABS: BEDSIDE GLUCOSE 93 MG/DL (80-115)
== END 2018-06-01 19:00 | disposition home or self-care (01) ==
LOC: M ED 14:15
DX: H81.399 Other peripheral vertigo, unspecified ear (principal); R11.0 Nausea; I51.7 Cardiomegaly; G60.2 Neuropathy in association with hereditary ataxia; I10 Essential (primary) hypertension; M48.00 Spinal stenosis, site unspecified; D63.1 Anemia in chronic kidney disease; N18.5 Chronic kidney disease, stage 5; E21.1 Secondary hyperparathyroidism, not elsewhere classified; G47.33 Obstructive sleep apnea (adult) (pediatric); N02.8 Recurrent and persistent hematuria with other morphologic changes; E11.21 Type 2 diabetes mellitus with diabetic nephropathy; Z99.2 Dependence on renal dialysis; Z79.4 Long term (current) use of insulin; Z79.899 Other long term (current) drug therapy; Z88.8 Allergy status to other drugs, medicaments and biological substances; Z91.89 Other specified personal risk factors, not elsewhere classified; Z91.02 Food additives allergy status
CPT/HCPCS: J2060

== ENCOUNTER → 2018-07-05 | Outpatient (REF) | payer MEDICARE, OTHER | LOC: M LAB REF 13:03 | DX: N39.0 Urinary tract infection, site not specified (principal); N18.6 End stage renal disease; R30.0 Dysuria | CPT/HCPCS: 87186 ==

== ENCOUNTER → 2018-07-11 | Outpatient (REF) | payer MEDICARE, OTHER ==
[2018-07-11 12:42] LABS: CHOLESTEROL LEVEL 91 MG/DL (<200); CHOLESTEROL RISK RATIO 1.784 (<5); CPK CREATINE PHOSPHOKINASE 75 U/L (26-192); FREE T4 0.82 NG/DL (0.76-1.46); HDL CHOLESTEROL 51 MG/DL (>40); LDL CHOLESTEROL 8.4 MG/DL (<100); NON-HDL-C 40 MG/DL; TOTAL PROTEIN 6.5 GM/DL (6.4-8.2); TRIGLYCERIDES LEVEL 158 MG/DL (<150)
[2018-07-11 12:52] LABS: BASO % 0.9 % (0.0-1.0); EOS # 0.2 10^3/uL (0.0-0.50); EOS % 5.2 % (0.0-3.0); HEMATOCRIT 36.2 % (36.0-47.0); HEMOGLOBIN 11.1 g/dl (12.0-15.5); IMMATURE GRANULOCYTE % 0.3 % (0-3.0); LYMPH # 0.8 10^3/uL (1.5-4.5); LYMPH % 23.6 % (24.0-44.0); MEAN CORPUSCULAR HEMOGLOBIN 27.1 pg (27.0-33.0); MEAN CORPUSCULAR HGB CONC 30.7 g/dl (32.0-36.5); MEAN CORPUSCULAR VOLUME 88.3 fl (80.0-96.0); MONO # 0.4 10^3/uL (0.0-0.8); MONO % 12.4 % (0.0-5.0); NEUTROPHILS % 57.6 % (36.0-66.0); PLATELET COUNT, AUTOMATED 120 10^3/uL (150-450); RED CELL DISTRIBUTION WIDTH 15.6 % (11.5-14.5); RETIC HEMOGLOBIN EQUIVALENT 32.2 pg (24-36); RETICULOCYTE # 45.5 10^9/L (17-77); RETICULOCYTE % 1.1 % (0.5-1.5); WHITE BLOOD COUNT 3.5 10^3/uL (4.0-10.0)
[2018-07-11 14:20] LABS: SLIDE REVIEW Report; SOURCE PERIPHERAL SMEAR
[2018-07-12 14:35] LABS: ALBUMIN 3.82 GM/DL (3.29-5.55); ALBUMIN % 58.7 % (55.8-66.1); ALPHA-1-GLOBULIN % 3.9 % (2.9-4.9); ALPHA-1-GLOBULINS 0.25 GM/DL (0.17-0.41); ALPHA-2-GLOBULINS 0.66 GM/DL (0.42-0.99); ALPHA-2-GLOBULINS % 10.1 % (7.1-11.8); BETA-1-GLOBULINS 0.42 GM/DL (0.28-0.60); BETA-1-GLOBULINS % 6.4 % (4.7-7.2); BETA-2-GLOBULINS 0.38 GM/DL (0.19-0.55); BETA-2-GLOBULINS % 5.9 % (3.2-6.5); GAMMA GLOBULINS 0.98 GM/DL (0.65-1.58)
== END ==
LOC: M SFHCPLAZ 08:36
DX: D50.9 Iron deficiency anemia, unspecified (principal); E78.2 Mixed hyperlipidemia; D72.819 Decreased white blood cell count, unspecified
CPT/HCPCS: 82550

== ENCOUNTER → 2018-07-23 | Outpatient (CLI) | payer MEDICARE, OTHER | LOC: M WUC 15:19 | DX: M75.42 Impingement syndrome of left shoulder (principal) | CPT/HCPCS: 73030 ==

== ENCOUNTER → 2018-11-25 | Outpatient (CLI) | payer MEDICARE, OTHER ==
[~2018-11-25] MED LIST changes: +ATIV1TAB10 PO; +BETA0.0543 TOP; +CALC0.009 TOP; +CLAR10CA3 PO; -DRIS50002 PO; +DRIS50003 PO; +FOSR500C2 PO; -HEPARIN 1,000 UNITS/ML 10ML VIAL (FOR RADIOLOGY& DIALYSIS ONLY) As Ordered ONE; -ISOVUE-300 61% 50ML VIAL (Q9967) As Ordered ONE; +KLOR10TA76 PO; -LEVA1TAB PO; +LEVA250T13 PO; -MIDAZOLAM INJ 2 MG/2 ML VIAL (J2250) As Ordered ONE; +MUPI2OI TOP; +NYST1POW9 TOP; -POTA10CA PO; -ROPI0.25 PO; +ROPI0.253 PO; +ZOFR4TAB14 PO; -fentaNYL 100 MCG/2 ML INJECTION (J3010) As Ordered ONE
--- NOTE | 2018-11-25 16:09 | REP ---
RIGHT WRIST, FOUR VIEWS: HISTORY: Radial tenosynovitis. There is no acute fracture of dislocation. The joint spaces are normal in appearance. IMPRESSION:There is no acute fracture or dislocation. Electronically Signed by Bharat Jon MD 11/25/2018 04:12 P
== END ==
LOC: M SMT 13:07
PROVIDERS: ATTEND Family Medicine
DX: M65.4 Radial styloid tenosynovitis [de Quervain] (principal)
CPT/HCPCS: 73110; G0463

== ENCOUNTER → 2019-02-03 | Outpatient (REF) | payer MEDICARE, OTHER | LOC: M LAB REF 13:03 | PROVIDERS: ATTEND Internal Medicine Nephrology | DX: N39.0 Urinary tract infection, site not specified (principal); N18.6 End stage renal disease; R30.0 Dysuria ==

== ENCOUNTER → 2019-02-28 | Outpatient (REF) | payer MEDICARE, OTHER ==
[~2019-02-28] MED LIST changes: -/GLIM2TA OR; +AMAR1TAB5 OR; +NEPH1TAB11 PO; -NEPHTAB PO; -SEVE80TAB PO
[2019-02-28 15:55] LABS: BASO % 0.3 % (0.0-1.0); EOS # 0.1 10^3/uL (0.0-0.50); EOS % 1.8 % (0.0-3.0); HEMATOCRIT 34.1 % (36.0-47.0); HEMOGLOBIN 10.5 g/dl (12.0-15.5); LYMPH # 0.7 10^3/uL (1.5-4.5); LYMPH % 19.9 % (24.0-44.0); MEAN CORPUSCULAR HEMOGLOBIN 27.4 pg (27.0-33.0); MEAN CORPUSCULAR HGB CONC 30.8 g/dl (32.0-36.5); MONO # 0.5 10^3/uL (0.0-0.8); MONO % 13.7 % (0.0-5.0); NEUTROPHILS # 2.2 10^3/uL (1.8-7.7); PLATELET COUNT, AUTOMATED 115 10^3/uL (150-450); RED BLOOD COUNT 3.83 10^6/uL (4.00-5.40); WHITE BLOOD COUNT 3.4 10^3/uL (4.0-10.0)
[2019-02-28 16:20] LABS: ALBUMIN 2.8 GM/DL (3.2-5.2); BILIRUBIN,TOTAL 0.4 MG/DL (0.2-1.0); CALCIUM LEVEL 8.5 MG/DL (8.8-10.2); CREATININE FOR GFR 5.92 MG/DL (0.55-1.30); GLOMERULAR FILTRATION RATE 7.6 (>45); POTASSIUM SERUM 4.4 MEQ/L (3.5-5.1); TOTAL PROTEIN 6.7 GM/DL (6.4-8.2)
== END ==
LOC: M SFHCPLAZ 14:23
PROVIDERS: ATTEND Physician Assistant Medical
DX: E11.29 Type 2 diabetes mellitus with other diabetic kidney complication (principal); R50.81 Fever presenting with conditions classified elsewhere
CPT/HCPCS: 36415; 80053; 85025; 87804; G0463

== ENCOUNTER → 2019-04-19 | Outpatient (REF) | payer MEDICARE, OTHER ==
[2019-04-19 11:06] LABS: BASO % 0.9 % (0.0-1.0); EOS # 0.3 10^3/uL (0.0-0.50); EOS % 7.5 % (0.0-3.0); HEMATOCRIT 34.8 % (36.0-47.0); HEMOGLOBIN 10.6 g/dl (12.0-15.5); LYMPH # 0.9 10^3/uL (1.5-4.5); MEAN CORPUSCULAR HEMOGLOBIN 27.3 pg (27.0-33.0); MEAN CORPUSCULAR HGB CONC 30.5 g/dl (32.0-36.5); MEAN CORPUSCULAR VOLUME 89.7 fl (80.0-96.0); MONO # 0.4 10^3/uL (0.0-0.8); NEUTROPHILS # 2.5 10^3/uL (1.8-7.7); NEUTROPHILS % 59.4 % (36.0-66.0); PLATELET COUNT, AUTOMATED 110 10^3/uL (150-450); RED BLOOD COUNT 3.88 10^6/uL (4.00-5.40); WHITE BLOOD COUNT 4.3 10^3/uL (4.0-10.0)
[2019-04-19 11:18] LABS: BILIRUBIN,TOTAL 0.5 MG/DL (0.2-1.0); CREATININE FOR GFR 6.84 MG/DL (0.55-1.30); GLOMERULAR FILTRATION RATE 6.4 (>45); POTASSIUM SERUM 4.9 MEQ/L (3.5-5.1); TOTAL PROTEIN 6.2 GM/DL (6.4-8.2)
[2019-04-19 11:26] LABS: PTH INTACT 624.7 PG/ML (18.5-88.0); TOTAL 25(OH) VITAMIN D 57.2 NG/ML (30.0-100.0)
== END ==
LOC: M SFHCPLAZ 08:08
PROVIDERS: ATTEND Family Medicine
DX: D50.9 Iron deficiency anemia, unspecified (principal); E78.2 Mixed hyperlipidemia; E55.9 Vitamin D deficiency, unspecified; E11.29 Type 2 diabetes mellitus with other diabetic kidney complication

== ENCOUNTER → 2019-05-03 | Outpatient (CLI) | payer MEDICARE, OTHER ==
--- NOTE | 2019-05-03 14:11 | REPMRS ---
Patient History The patient states she has not had a clinical breast exam in over a year. Patient is postmenopausal. Family history of breast cancer under age 50 in maternal aunt. 2 benign stereotatic breast biopsies of the right breast, October 29, 2008. No Hormone Replacement Therapy Digital Woman Screen Mammo: May 03, 2019 - Exam #: [id number] Bilateral CC and MLO view(s) were taken. Technologist: Latanya Jon, Technologist Prior study comparison: May 02, 2018, digital woman screen mammo performed at [facility]. March 05, 2017, digital woman screen mammo performed at [facility]. February 03, 2016, digital woman screen mammo performed at [facility]. FINDINGS: There are scattered fibroglandular densities. There are two needle biopsy marker clips again noted in the right breast. There is a stable nodule again noted in the left breast. There is a moderate amount of residual fibroglandular tissue which is fairly symmetric. There is no interval development of dominant mass, architectural distortion, or clustered microcalcification typical of malignancy. There has been no change in the appearance of the mammogram from the prior studies. 3-D tomosynthesis shows no additional findings. Assessment: BI-RADS/ACR category 2 mammogram. Benign Findings. Recommendation Routine screening mammogram of both breasts in 1 year (for women over age 40). This patient's Lifetime Breast Cancer RIsk is estimated at 8.5 %. This mammogram was interpreted with the aid of an FDA-approved computer-aided dectection system. Electronically Signed By: Sean Hines MD 05/03/19 [id number]
== END ==
LOC: M WHC 08:55
PROVIDERS: ATTEND Family Medicine
DX: Z12.31 Encounter for screening mammogram for malignant neoplasm of breast (principal); Z78.0 Asymptomatic menopausal state; Z86.018 Personal history of other benign neoplasm

== ENCOUNTER → 2019-05-31 | Outpatient (CLI) | payer MEDICARE, OTHER ==
[~2019-05-31] MED LIST changes: +ACET-683 PO; +BUPIVACAINE HCL 0.5% 10 ML VIAL As Ordered ONE; +ISOVUE-300 61% 50ML VIAL (Q9967) As Ordered ONE; +LANT1000 PO; +LIDOCAINE 2% MDV 20 ML VIAL As Ordered ONE; +MIDAZOLAM INJ 2 MG/2 ML VIAL (J2250) As Ordered ONE; +MM S100C PO; +diphenhydrAMINE INJ 50MG/ML VIAL (J1200) As Ordered ONE; +fentaNYL 100 MCG/2 ML INJECTION (J3010) As Ordered ONE
[2019-05-31 12:29] VITALS: BP 196/76
--- NOTE | 2019-07-06 08:35 | REPIR ---
DATE OF PROCEDURE: 05/31/2019 ATTENDING SURGEON: Dr. Hrash Iqbal PREOPERATIVE DIAGNOSES: End-stage renal disease, dysfunctional left radiocephalic arteriovenous fistula. POSTOPERATIVE DIAGNOSES: End-stage renal disease, dysfunctional left radiocephalic arteriovenous fistula. PROCEDURE: Left radiocephalic arteriovenous fistulogram, selective left radial artery catheter placement with angiogram runoff. INDICATION: The patient is a 64-year-old female with a left radiocephalic arteriovenous fistula which has had difficulty with cannulation and occasional excessive bleeding on recanalization. The patient undergo a fistulogram with possible angioplasty, stent and/or atherectomy. ANESTHESIA: Local. FLUORO TIME: 1.9 minutes. CONTRAST: 2 mL of Isovue-300. HEPARIN: None. COMPLICATIONS: None. DRAINS: None. SPECIMENS: None. IMPLANTS: None. PROCEDURE: The patient was taken to the angiography suite, placed supine on the angiography table and then prepped and draped in a standard surgical fashion. The left radiocephalic arteriovenous fistulas was cannulated with a micropuncture needle after anesthetizing the overlying skin with 2% lidocaine mixed with 0.5% Marcaine. The micropuncture wire was advanced to the micropuncture needle, which was upsized to a micropuncture sheath. A Bentson wire was advanced through the micropuncture sheath, which was upsized to a Garvin catheter, which was then placed into the fistula. A fistulogram was performed. The Garvin catheter was then advanced through the fistula and into the radial artery in a retrograde fashion and a selective left radial artery angiogram with runoff was performed. No intervention was required. Catheters and wires were removed and manual compression was applied at the puncture site for hemostasis. Dressings were then applied. The patient tolerated the procedure well. All instrument, sponge and needle counts were correct at the end the case. There were no complications. Dr. Iqbal was present for and directed the entire case. The patient was transferred to the holding area and subsequently discharged in stable condition.
== END ==
LOC: M IRPRO 09:42
PROVIDERS: ATTEND Surgery Vascular Surgery
DX: T82.898A Other specified complication of vascular prosthetic devices, implants and grafts, initial encounter (principal); N18.6 End stage renal disease; E11.22 Type 2 diabetes mellitus with diabetic chronic kidney disease; E78.5 Hyperlipidemia, unspecified; G47.33 Obstructive sleep apnea (adult) (pediatric); X58.XXXA Exposure to other specified factors, initial encounter; Y93.9 Activity, unspecified; Y92.9 Unspecified place or not applicable; Y99.8 Other external cause status
CPT/HCPCS: 36901; C1769; C1887; C1894; Q9967

== ENCOUNTER → 2019-06-05 | Outpatient (CLI) | payer MEDICARE, OTHER ==
[2019-06-05 11:26] VITALS: BP 142/63
--- NOTE | 2019-07-06 09:09 | REPIR ---
DATE OF PROCEDURE: 06/05/2019 ATTENDING SURGEON: Dr. aCrly Iqbal ASSISTANTS: Samina Blevins and Jean Paul Jansen. PREOPERATIVE DIAGNOSES: End-stage renal disease, dysfunctional left radiocephalic arteriovenous fistula. POSTOPERATIVE DIAGNOSES: End-stage renal disease, dysfunctional left radiocephalic arteriovenous fistula. PROCEDURE: Left radiocephalic arteriovenous fistulogram, ultrasound-guided left brachial artery cannulation, brachial artery angiogram, selective left brachial artery catheter with angiogram, selective left cephalic vein catheter placement with angiogram, left brachial artery and cephalic vein angioplasty with a 6 x 100 balloon, left cephalic vein angioplasty with 8 x 100 balloon. INDICATION: The patient is a 64-year-old female with end-stage renal disease and a dysfunctional left radiocephalic arteriovenous fistula. The patient will undergo a fistulogram with possible angioplasty stent and/or atherectomy. ANESTHESIA: Local sedation with 2 mg of Versed, 100 mcg of fentanyl, and 10 mL of 2% lidocaine mixed with 0.5% Marcaine. FLUOROSCOPY TIME: 14.1 minutes. CONTRAST: 5 mL of Isovue-300. SEDATION TIME: From 9:32 a.m. to 10:08 a.m. for a total of 36 minutes. HEPARIN: None. COMPLICATIONS: None. DRAINS: None. SPECIMENS: None. IMPLANTS: None. PROCEDURE: The patient was taken to the angiography suite, placed supine on the angiography room table, and then prepped and draped in a standard surgical fashion. The left radiocephalic arteriovenous fistula was cannulated with a micropuncture needle after anesthetizing the overlying skin and subcutaneous tissue with local anesthesia. The catheter was advanced through the fistula. It was attempted to enter into the radial artery in a retrograde fashion without success. Ultrasound was used then to guide cannulation of the left brachial artery. The radial artery was then selectively cannulated and angiogram performed. Catheter wire were advanced through the radial artery into the cephalic vein, and then a fistulogram was performed. There was a high-grade stenosis at the radial artery to cephalic vein anastomosis. The radial artery and cephalic vein were then angioplastied with a 6 x 100 balloon. The cephalic vein was angioplastied with an 8 x 100 balloon. A completion fistulogram showed resolution of the stenosis with excellent flow through the fistula. Catheters and wires removed. Manual compression was applied for hemostasis. Dressings were then applied. The patient tolerated the procedure well. All instrument, sponge, and needle counts were correct at the end the case. There were no complications. Dr. Iqbal was present for and directed the entire case. The patient was transferred to the holding area and subsequently discharged in stable condition.
== END ==
LOC: M IRPRO 06:42
PROVIDERS: ATTEND Surgery Vascular Surgery
DX: T85.898A Other specified complication of other internal prosthetic devices, implants and grafts, initial encounter (principal); N18.6 End stage renal disease; E11.9 Type 2 diabetes mellitus without complications; G47.33 Obstructive sleep apnea (adult) (pediatric); E78.5 Hyperlipidemia, unspecified; X58.XXXA Exposure to other specified factors, initial encounter; Y93.9 Activity, unspecified; Y92.9 Unspecified place or not applicable; Y99.9 Unspecified external cause status
CPT/HCPCS: 36902; 36907; 99152; 99153; C1725; C1769; C1887; C1894; J2250; J3010; Q9967

== ENCOUNTER → 2019-09-22 | Outpatient (REF) | payer MEDICARE, OTHER ==
[~2019-09-22] MED LIST changes: -BUPIVACAINE HCL 0.5% 10 ML VIAL As Ordered ONE; -GLIM4TAB PO; +GLIM4TAB3 PO; -ISOVUE-300 61% 50ML VIAL (Q9967) As Ordered ONE; -LIDOCAINE 2% MDV 20 ML VIAL As Ordered ONE; -MIDAZOLAM INJ 2 MG/2 ML VIAL (J2250) As Ordered ONE; -diphenhydrAMINE INJ 50MG/ML VIAL (J1200) As Ordered ONE; -fentaNYL 100 MCG/2 ML INJECTION (J3010) As Ordered ONE
[2019-09-22 10:49] LABS: ALBUMIN 3.2 GM/DL (3.2-5.2); ALT/SGPT 49 U/L (12-78); BILIRUBIN,TOTAL 0.5 MG/DL (0.2-1.0); BLOOD UREA NITROGEN 45 MG/DL (7-18); C REACTIVE PROTEIN QUANTITATIV < 0.30 MG/DL (0.00-0.30); CALCIUM LEVEL 9.1 MG/DL (8.8-10.2); CARBON DIOXIDE LEVEL 26 MEQ/L (21-32); CHLORIDE LEVEL 107 MEQ/L (98-107); CHOLESTEROL LEVEL 114 MG/DL (<200); CHOLESTEROL RISK RATIO 2.072 (<5); CPK CREATINE PHOSPHOKINASE 55 U/L (26-192); CREATININE FOR GFR 7.04 MG/DL (0.55-1.30); GLOMERULAR FILTRATION RATE 6.2 (>45); GLUCOSE, FASTING 138 MG/DL (70-100); HDL CHOLESTEROL 55 MG/DL (>40); LDL CHOLESTEROL 17 MG/DL (<100); NON-HDL-C 59 MG/DL; SODIUM LEVEL 141 MEQ/L (136-145); TOTAL PROTEIN 7.4 GM/DL (6.4-8.2); TRIGLYCERIDES LEVEL 208 MG/DL (<150)
== END ==
LOC: M SFHCPLAZ 08:27
PROVIDERS: ATTEND Family Medicine
DX: E78.2 Mixed hyperlipidemia (principal); Z79.899 Other long term (current) drug therapy

== ENCOUNTER → 2019-09-29 | Outpatient (CLI) | payer MEDICARE, OTHER ==
[~2019-09-29] MED LIST changes: +ISOVUE-300 61% 50ML VIAL (Q9967) As Ordered ONE; +LIDOCAINE 1% MDV 20ML VIAL As Ordered ONE; +MIDAZOLAM INJ 2 MG/2 ML VIAL (J2250) As Ordered ONE; +SERT25TA85 PO; +fentaNYL 100 MCG/2 ML INJECTION (J3010) As Ordered ONE
[2019-09-29 14:38] VITALS: BP 171/90
--- NOTE | 2019-09-29 15:49 | ROOPDOC ---
[facility] Report Of Operation Report of Operation DATE OF PROCEDURE: 09/29/19 PREPROCEDURE DIAGNOSES: End-stage renal disease with difficulty of cannulation proximal cephalic vein forearm of Mily fistula POSTPROCEDURE DIAGNOSES: Same PROCEDURE: 1. Ultrasound-guided access left radiocephalic AV fistula 2. Fistulogram and central venogram 3. Angioplasty cephalic vein proximal to aneurysmal segments from the mid forearm to the antecubital region with a 12 x 80 Jean balloon 4. Completion venogram SURGEON: Luis Carlos Mccarthy MD ANESTHESIA: Local anesthesia 1 mL lidocaine. Moderate intravenous conscious sedation was administered by Dr. Mccarthy. The patient was independently monitored by a registered nurse and signs of department of radiology using automated blood pressure, EKG, and pulse oximetry. The details sedation record is permanently housed in the hospital information system. The following a brief sedation record: start time 13:39, stop time 13:52, 0.5 mg Versed, 25 g fentanyl. CONTRAST: 30 mL Isovue INDICATION FOR PROCEDURE: Ms. Hensley is a very pleasant 64-year-old patient with end-stage renal disease currently dialyzing with left upper extremity Mily fistula. There were to aneurysmal segments that developed over time, and the dialysis nurses are trying to avoid using the segments due to the fragility of the vein. There currently accessing just proximal to the aneurysmal segments. This area is very superficial. They are having trouble accessing more proximally on the forearm towards the antecubital crease. They're hoping we might dilate the vein out to make access more amenable. Risks benefits and alternatives to a fistulogram and potential intervention were explained to the patient she is agreeable to proceed. Informed consent was obtained. INTERPRETATION: 1. There is widely patent inflow through the AV anastomosis into the cephalic vein fistula with 2 areas of aneurysmal dilatation, no stenosis proximal to the AV anastomosis or between the aneurysms. The cephalic vein in the forearm, upper arm, at the subclavian junction is widely patent. The central veins are widely patent. 2. In order to make cannulation easier, we angioplastied cephalic vein in the forearm and across the antecubital crease with a 12 x 40 Jean balloon. The vein measured 9 mm pre-angioplasty, an 11-12 mm postangioplasty. No extravasation was noted. REPORT OF OPERATION: The patient was brought to the angiographic suite in stable condition. Her left upper extremity was prepped and draped in a sterile fashion. A timeout was performed. Local anesthesia was administered to the skin and subcutaneous tissue over the cephalic vein near the wrist near the AV anastomosis. A microneedle was used to access the cephalic vein under ultrasound guidance and wire was passed through this access under fluoroscopic guidance. We then placed a micro-sheath and exchanged wire and inner cannula for Glidewire through to the central system under fluoroscopic guidance. The micro-sheath was exchanged for 6 Cambodian sheath which was flushed with saline. A fistulogram and central venogram were performed. Please see interpretation above. The entire ce phalic vein looked widely patent, but after angioplasty it was dilated somewhat larger in the forearm. Our hope was that this might make cannulation easier for the nurses. No further intervention was required. Completion venogram did not show any extravasation. A suture was placed at the she site in the sheath was removed and the suture was secured. Gentle pressure was held for 2 minutes and sterile dressings were applied. Next, ultrasound was used along with a marking pen to map the fistula on the skin to help with cannulation. Unfortunately, moving proximally up the arm, the cephalic vein is somewhat deeper in this patient that it is in the distal arm. Between the aneurysms that is 0.5 cm deep but more proximally to is 1.1-1.2 cm deep. This may make cannulation difficult for the nurses. I noted this depth discrepancy on the skin as well. Hopefully this will help with their decision for cannulation. I did discuss with the patient that should she need another AV access if this is not feasible for ongoing dialysis, her cephalic vein in the upper arm is already suitable for AV anastomosis and a brachiocephalic fistula would not take long to mature. However, I do not want to abandon this access at this point is it is still functional. ESTIMATED BLOOD LOSS: Approximately 2 mL. COMPLICATIONS: None. PLAN: Okay to use left upper extremity AV fistula for dialysis. LUIS CARLOS MCCARTHY MD Sep 29, 2019 15:49
== END ==
LOC: M IRPRO 11:33
PROVIDERS: ATTEND Surgery Vascular Surgery
DX: T82.898A Other specified complication of vascular prosthetic devices, implants and grafts, initial encounter (principal); N18.6 End stage renal disease; X58.XXXA Exposure to other specified factors, initial encounter; Y93.9 Activity, unspecified; Y92.9 Unspecified place or not applicable; Y99.9 Unspecified external cause status
CPT/HCPCS: 36902; 99152; C1725; C1769; C1894; J2250; J3010; Q9967

== ENCOUNTER → 2019-10-12 | Outpatient (CLI) | payer MEDICARE, OTHER ==
[~2019-10-12] MED LIST changes: +CINA30TA4 PO; -ISOVUE-300 61% 50ML VIAL (Q9967) As Ordered ONE; +LIDO5DIS41 TD; -LIDOCAINE 1% MDV 20ML VIAL As Ordered ONE; -MIDAZOLAM INJ 2 MG/2 ML VIAL (J2250) As Ordered ONE; +ULTR50TA8 PO; -fentaNYL 100 MCG/2 ML INJECTION (J3010) As Ordered ONE
--- NOTE | 2019-10-12 12:16 | REP ---
Four views pelvis/left hip and five views lumbosacral spine: 10/12/2019. Indication: Low back and left hip pain. Comparison: CT dated 04/13/2016. Findings: There is no acute fracture, subluxation or dislocation. Disc space narrowing and spondylitic sequelae of the lumbar spine are noted with greatest osteophytic formation anteriorly at L1/L2. No lytic or blastic lesions are present. Multiple surgical clips are noted. Aortoiliac atherosclerotic disease is present. There is no evidence of hip fracture, subluxation or dislocation. Femoral atherosclerotic disease is present. Impression: No acute osseous injuries of the lumbosacral spine, pelvis or left hip. Electronically Signed by Erasmo Acevedo DO 10/12/2019 12:08 P
== END ==
LOC: M WUC 10:47
PROVIDERS: ATTEND Family Medicine
DX: M47.816 Spondylosis without myelopathy or radiculopathy, lumbar region (principal); M51.36 Other intervertebral disc degeneration, lumbar region; I70.8 Atherosclerosis of other arteries

== ENCOUNTER 2019-10-15 21:42 | Emergency (ER) | payer MEDICARE, OTHER ==
[~2019-10-15] VITALS: Ht 160 cm; Wt 105.5 kg
[~2019-10-15 21:42] MED LIST changes: -CINA30TA4 PO; -LIDO5DIS41 TD; -ULTR50TA8 PO
[2019-10-15] MEDS ORDERED: CINA30TA4 PO (22:16)
[2019-10-15] MEDS ORDERED: LANTINJ4 SC (22:18)
[2019-10-15] MEDS ORDERED: RENV2TAB PO (22:18)
[2019-10-15] MEDS ORDERED: traMADol 50 MG TAB PO ONE (23:00)
[2019-10-15] MEDS ORDERED: ULTR50TA8 PO (23:53)
[2019-10-15] MEDS ORDERED: LIDO5DIS41 TD (23:53)
[2019-10-16] MEDS ORDERED: LIDOCAINE 5% (LIDODERM) PATCH TD ONE
[2019-10-16 00:05] VITALS: BP 140/69
[2019-10-16] MEDS ORDERED: **NOTE PATIENT COMMENT** MISC XX ONE (12:00)
== END 2019-10-16 00:39 | disposition home or self-care (01) ==
LOC: M ED 21:42 → EDBD 21:42 → M ED 10-16 00:39
DX: M54.31 Sciatica, right side (principal); Z88.0 Allergy status to penicillin; Z91.048 Other nonmedicinal substance allergy status; Z91.09 Other allergy status, other than to drugs and biological substances; Z79.83 Long term (current) use of bisphosphonates; Z79.84 Long term (current) use of oral hypoglycemic drugs; Z79.891 Long term (current) use of opiate analgesic; Z79.899 Other long term (current) drug therapy

== ENCOUNTER → 2020-01-29 | Outpatient (REF) | payer MEDICARE, OTHER ==
[~2020-01-29] MED LIST changes: +CINA30TA4 PO; -GLIM4TAB3 PO; +GLIM4TAB5 PO; +LIDO5DIS41 TD; +ULTR50TA8 PO
[2020-01-29 12:22] LABS: FREE T4 0.84 NG/DL (0.76-1.46); THYROID STIMULATING HORMONE 1.58 uIU/ML (0.358-3.740)
== END ==
LOC: M SFHCPLAZ 08:54
PROVIDERS: ATTEND Family Medicine
DX: E11.29 Type 2 diabetes mellitus with other diabetic kidney complication (principal); E78.2 Mixed hyperlipidemia; D50.9 Iron deficiency anemia, unspecified

== ENCOUNTER → 2020-06-05 | Outpatient (CLI) | payer MEDICARE, OTHER ==
--- NOTE | 2020-06-05 11:45 | REPMRS ---
Patient History The patient states she has not had a clinical breast exam in over a year. Family history of breast cancer under age 50 in maternal aunt. 2 benign stereotatic breast biopsies of the right breast, October 29, 2008. No Hormone Replacement Therapy 3D TOMOSYNTHESIS WAS PERFORMED. [facility] 8.1%. VOLPARA DENSITY B. Digital Woman Screen Mammo: June 05, 2020 - Exam #: [id number] Bilateral CC and MLO view(s) were taken. Technologist: Rhea Sepulveda, Technologist Prior study comparison: May 03, 2019, bilateral digital woman screen mammo performed at [facility]. May 02, 2018, digital woman screen mammo performed at [facility]. FINDINGS: There are scattered fibroglandular densities. There is a fairly symmetric fibroglandular pattern in both breasts. There has been no interval development of masses, areas of architectural distortion or clusters of microcalcifications typical of malignancy. The previously noted left breast nodule remains stable. No significant changes when compared with prior studies. Assessment: BI-RADS/ACR category 2 mammogram. Benign Findings. Recommendation Routine screening mammogram of both breasts in 1 year (for women over age 40). This mammogram was interpreted with the aid of an FDA-approved computer-aided dectection system. Electronically Signed By: Jose Juan Cheung MD 06/05/20 [id number]
== END ==
LOC: M WHC 10:06
PROVIDERS: ATTEND Family Medicine
DX: Z12.31 Encounter for screening mammogram for malignant neoplasm of breast (principal); Z86.018 Personal history of other benign neoplasm

== ENCOUNTER → 2020-06-10 | Outpatient (CLI) | payer MEDICARE, OTHER ==
[2020-06-10 13:37] LABS: BASO % 0.8 % (0.0-1.0); EOS # 0.1 10^3/uL (0.0-0.5); EOS % 3.7 % (0.0-3.0); HEMATOCRIT 34.5 % (36.0-47.0); HEMOGLOBIN 10.5 g/dl (12.0-15.5); LYMPH % 26.1 % (24.0-44.0); MEAN CORPUSCULAR HEMOGLOBIN 27.4 pg (27.0-33.0); MEAN CORPUSCULAR HGB CONC 30.4 g/dl (32.0-36.5); MEAN CORPUSCULAR VOLUME 90.1 fl (80.0-96.0); MONO # 0.5 10^3/uL (0.0-0.8); MONO % 12.5 % (0.0-5.0); NEUTROPHILS # 2.2 10^3/uL (1.5-8.5); NEUTROPHILS % 56.6 % (36.0-66.0); PLATELET COUNT, AUTOMATED 131 10^3/uL (150-450); RED BLOOD COUNT 3.83 10^6/uL (4.00-5.40); WHITE BLOOD COUNT 3.8 10^3/uL (4.0-10.0)
[2020-06-10 14:09] LABS: HEMOGLOBIN A1c 6.3 %
[2020-06-10 14:21] LABS: CHOLESTEROL RISK RATIO 2.857 (<5)
[2020-06-11 13:07] LABS: C-PEPTIDE 20.5 ng/mL (1.1-4.4)
== END ==
LOC: M PLALAB 09:35
PROVIDERS: ATTEND Family Medicine
DX: D72.819 Decreased white blood cell count, unspecified (principal); E78.2 Mixed hyperlipidemia; E11.29 Type 2 diabetes mellitus with other diabetic kidney complication

== ENCOUNTER → 2020-06-18 | Outpatient (CLI) | payer MEDICARE, OTHER ==
--- NOTE | 2020-07-23 11:58 | DEXA ---
AP SPINE L2 - L4 1.438 2.0 3.6 LT FEMUR TOTAL 0.872 -1.1 0.2 LT NECK 0.943 -0.7 0.8 RT FEMUR TOTAL 0.955 -0.4 0.8 RT NECK 0.722 -2.3 -0.8 TOTAL BODY TOTAL OTHER COMMENTS: Normal Bone Densitometry of the spine and hips. There is low bone density of the hips. The density of the spine has decreased 3.7% since the initial exam on 07/08/2004. The decreased 4.6% since the most recent exam on 03/09/2018. The density of the left hip has decreased 32.3% since the initial exam on 07/08/2004. The density of the left hip has increased 0.3% since the most recent exam on 03/09/2018. The density of the right hip has decreased 20.7% since the initial exam on 07/08/2004. The density of the right hip has increased 4.9% since the most recent exam on 03/09/2018. FOLLOW-UP: Recommendation for the next bone density exam: 2 years. NELSON
== END ==
LOC: M WHC 18:05
PROVIDERS: ATTEND Family Medicine
DX: M85.89 Other specified disorders of bone density and structure, multiple sites (principal)

== ENCOUNTER → 2020-10-30 | Outpatient (CLI) | payer MEDICARE, OTHER ==
--- NOTE | 2020-10-30 16:28 | REP ---
INDICATION: CYST OF KIDNEY ESRD. COMPARISON: Comparison CT study April 13, 2016.. TECHNIQUE: Urinary tract sonography. FINDINGS: Scanning at the level of the urinary bladder demonstrates that it is largely empty at the time of scanning.. Renal cortical echogenicity pattern is quite increased consistent with chronic medical renal disease. There is marked diffuse cortical thinning bilaterally. No hydronephrosis is seen on either side. There are multiple simple cysts noted bilaterally. In the right kidney there are 3 cysts in the upper and midpole and 2 cysts in the lower pole. The largest of these measures 1.6 cm in greatest diameter. In the left kidney there is a 1.6 cm midpole cyst and a 1.1 cm lower pole cyst.. No renal mass lesion is observed.. The right kidney measures 11.5 x 4.4 x 3.30 cm. Left renal dimensions are 12.1 x 4.2 x 4.1 cm. IMPRESSION: Profound renal cortical atrophy. Increased renal cortical echogenicity bilaterally. Multiple small renal cortical cysts bilaterally.. <Electronically signed by Sean Hines > 10/30/20 [id number]
== END ==
LOC: M RAD 12:43
PROVIDERS: ATTEND Internal Medicine Nephrology
DX: N28.1 Cyst of kidney, acquired (principal); N18.6 End stage renal disease

== ENCOUNTER → 2020-11-06 | Outpatient (CLI) | payer MEDICARE, OTHER ==
--- NOTE | 2020-11-07 08:31 | REPPI ---
INDICATION: ARTHRITIS LEFT KNEE COMPARISON: None. TECHNIQUE: There are four views. FINDINGS: There is tricompartment osteoarthritis. There is a suprapatellar effusion. There is an old healed fracture of the proximal fibular shaft. There are no calcifications or foreign bodies. IMPRESSION: Tricompartment osteoarthritis. Suprapatellar effusion. Old healed fibular fracture. <Electronically signed by Jose Juan Galvni > 11/07/20 [id number]
== END ==
LOC: M PLAIMG 15:38
PROVIDERS: ATTEND Physician Assistant Medical
DX: M17.12 Unilateral primary osteoarthritis, left knee (principal); M25.462 Effusion, left knee; M25.562 Pain in left knee

== ENCOUNTER → 2020-11-28 | Outpatient (CLI) | payer MEDICARE, OTHER ==
--- NOTE | 2020-11-29 10:00 | REP ---
INDICATION: ARTHRALGIA OF LT KNEE. COMPARISON: Radiographs 11/06/2020. TECHNIQUE: Multiple sequences obtained in the axial, coronal and sagittal planes. FINDINGS: Menisci: There is an extensive complex tear of the body and posterior horn of the medial meniscus. There is a small tear of the undersurface of the body of the lateral meniscus. There appears to be some degree of fraying centrally of the posterior horn of the lateral meniscus. Cruciate ligaments: Intact. Collateral ligaments: Intact. Extensor mechanism/patellar retinacula: Intact. Cartilage: There is moderate diffuse chondromalacia of the patella. There is mild diffuse chondromalacia in the lateral joint compartment. There is moderately severe diffuse chondromalacia along the medial femoral condyle and tibial plateau. Bone marrow: Moderate marrow edema is seen in the medial femoral condyle, with mild edema in the medial tibial plateau. Joint fluid: There is a large joint effusion. Popliteal region: No cyst. There is a small suprapatellar plica. There are 2 adjacent calcific bodies just posterior to the posterior cruciate ligament, each measuring 7 mm in diameter. There is mild spurring of the femoral condyles. IMPRESSION: Extensive complex tear of the body and posterior horn of the medial meniscus. Small tear undersurface of the body of the lateral meniscus, with some degree of fraying centrally of the posterior horn of the lateral meniscus. Diffuse chondromalacia as above most significantly involving the patella and medial femoral condyle. Subchondral marrow edema in the medial femoral condyle and tibial plateau. Large joint effusion. Small suprapatellar plica. Two calcific bodies are visualized posterior to the posterior cruciate ligament, each measuring 7 mm in diameter. <Electronically signed by Jose Juan Cheung > 11/29/20 [id number]
== END ==
LOC: M RAD 17:58
PROVIDERS: ATTEND Physician Assistant Medical
DX: S83.231A Complex tear of medial meniscus, current injury, right knee, initial encounter (principal); Y92.9 Unspecified place or not applicable; Y93.9 Activity, unspecified; Y99.9 Unspecified external cause status

== ENCOUNTER → 2021-05-16 | Outpatient (REF) | payer MEDICARE, OTHER ==
[2021-05-16 10:59] LABS: CHOLESTEROL RISK RATIO 2.906 (<5); FREE T4 0.71 NG/DL (0.76-1.46); THYROID STIMULATING HORMONE 2.39 uIU/ML (0.358-3.740)
== END ==
LOC: M PLALAB 08:11
PROVIDERS: ATTEND Family Medicine
DX: E78.2 Mixed hyperlipidemia (principal); E11.29 Type 2 diabetes mellitus with other diabetic kidney complication

== ENCOUNTER → 2021-05-16 | Outpatient (CLI) | payer MEDICARE, OTHER ==
--- NOTE | 2021-05-16 09:55 | REPPI ---
INDICATION: M75.41 IMPINGEMENT SYNDROME OF RIGHT SHOULDER. COMPARISON: None. TECHNIQUE: Three views of the right shoulder are provided. FINDINGS: The humeral head is positioned somewhat inferior with respect to the glenoid and acromion process which suggests a significant glenohumeral joint effusion. There is AC joint hypertrophy. Inferior glenoid spur formation is observed. No fracture is seen. There is mild subcortical cyst formation in the humeral head. Degenerative changes are seen along the right side of the thoracic spine. IMPRESSION: Probable glenohumeral joint effusion. Inferior glenoid articular spurring. No acute bony abnormality. Mild AC joint hypertrophy. <Electronically signed by Sean Hines > 05/16/21 0920
== END ==
LOC: M PLAIMG 08:12
PROVIDERS: ATTEND Family Medicine
DX: M75.41 Impingement syndrome of right shoulder (principal); E78.2 Mixed hyperlipidemia; E11.29 Type 2 diabetes mellitus with other diabetic kidney complication

== ENCOUNTER → 2021-07-07 | Outpatient (CLI) | payer MEDICARE, OTHER ==
--- NOTE | 2021-07-07 12:28 | REPMRS ---
Patient History The patient states she has not had a clinical breast exam in over a year. Family history of breast cancer under age 50 in maternal aunt. 2 benign stereotatic breast biopsies of the right breast, October 29, 2008. No Hormone Replacement Therapy No breast complaints today Patient signed the MRS sheet 1st covid vaccine 01/17/21-right arm-Moderna 2nd covid vaccine 02/11/21-right arm Priors on PACS Patient Identification Verified Digital Woman Screen Mammo: July 07, 2021 - Exam #: [id number] Bilateral CC and MLO view(s) were taken. Technologist: Rhea Sepulveda, Technologist Prior study comparison: June 05, 2020, bilateral digital woman screen mammo performed at [facility]. May 03, 2019, bilateral digital woman screen mammo performed at [facility]. FINDINGS: There are scattered fibroglandular densities. Screening. Digital screening (2D) mammography was performed bilaterally in the CC and MLO projections. Additionally, breast tomosynthesis (3D mammography) was performed bilaterally in the CC and MLO projections. Todays exam was compared to the prior exam/exams. By history, the patient has no complaints of a palpable breast abnormality or other significant breast complaints. The breasts are unchanged in size and shape. There are no gaurav-soft tissue densities or spiculated masses. There is no internal architectural distortion.Once again, stable benign appearing calcifications are seen. There are no suspicious gaurav-calcific clusters. Skin thickening or nipple retraction is not present. IMPRESSION: BI-RADS Category 2- Benign Findings. There is no evidence of malignant alteration of the breasts. Followup examination recommended in one year. The Volpara volumetric breast density category is B, there are scattered areas of fibroglandular densities. This mammogram was read with the assistance of Spinnakr,an FDA approved computer aided detection system for mammography. The lifetime Tyrer-Cuzick score is 7.6 % Negative x-ray reports should not delay surgical consultation if a dominant or clinically suspicious mass is present. Not all breast cancers can be identified by mammography. Therefore, we recommend that you continue to perform regular breast self-examination and physical examination and then promptly contact your physician of any concerns or changes. Adenosis and dense breasts may obscure an underlying neoplasm. Assessment: BI-RADS/ACR category 2 mammogram. Benign Findings. Recommendation Routine screening mammogram of both breasts in 1 year. Electronically Signed By: Venkat Rushing DO 07/07/21 [id number]
== END ==
LOC: M WHC 11:17
PROVIDERS: ATTEND Family Medicine
DX: Z12.31 Encounter for screening mammogram for malignant neoplasm of breast (principal)

== ENCOUNTER 2022-03-15 13:54 | Outpatient (CLI) | payer MEDICARE, OTHER ==
[~2022-03-15] VITALS: Ht 162.6 cm; Wt 104.0 kg
[~2022-03-15 13:54] MED LIST changes: +ALBUTEROL SULFATE 2.5 MG/0.5 ML INH NEB SOLN INH PRN; +EPINEPHrine INJ 1 MG/ML 1ML AMP IM PRN; -KLOR10TA76 PO; +POTA-136 PO; +diphenhydrAMINE 50MG/ML VIAL (J1200) IV PRN; +methylPREDNISolone 125MG 2ML VIAL IV PRN
[2022-03-15] MEDS ORDERED: BEBTELOVIMAB 175MG 2ML VIAL (EUA) IV ONE (15:00)
[2022-03-15 15:48] VITALS: BP 150/67
[2022-03-15 17:00] VITALS: BP 154/68
== END 2022-03-15 17:22 | disposition home health service (06) ==
LOC: M OPCLI4PR 13:54 → M 4MAIN 14:10 → M OPCLI4PR 17:22
PROVIDERS: ATTEND Family Medicine
DX: U07.1 COVID-19 (principal); Z91.048 Other nonmedicinal substance allergy status; Z88.8 Allergy status to other drugs, medicaments and biological substances

== ENCOUNTER 2022-03-16 10:23 | Emergency (ER) | payer MEDICARE, OTHER ==
[~2022-03-16 10:23] MED LIST changes: -ALBUTEROL SULFATE 2.5 MG/0.5 ML INH NEB SOLN INH PRN; -EPINEPHrine INJ 1 MG/ML 1ML AMP IM PRN; -diphenhydrAMINE 50MG/ML VIAL (J1200) IV PRN; -methylPREDNISolone 125MG 2ML VIAL IV PRN
[2022-03-16 11:59] LABS: BASO % 0.4 % (0.0-1.0); EOS # 0.1 10^3/uL (0.0-0.5); EOS % 2.1 % (0.0-3.0); HEMATOCRIT 31.4 % (36.0-47.0); LYMPH # 0.9 10^3/uL (1.5-5.0); LYMPH % 19.4 % (24.0-44.0); MEAN CORPUSCULAR HEMOGLOBIN 28.4 pg (27.0-33.0); MEAN CORPUSCULAR HGB CONC 31.8 g/dl (32.0-36.5); MEAN CORPUSCULAR VOLUME 89.2 fl (80.0-96.0); MONO # 0.4 10^3/uL (0.0-0.8); MONO % 7.4 % (2.0-8.0); NEUTROPHILS # 3.4 10^3/uL (1.5-8.5); NEUTROPHILS % 70.1 % (36.0-66.0); PLATELET COUNT, AUTOMATED 147 10^3/uL (150-450); RED BLOOD COUNT 3.52 10^6/uL (4.00-5.40); WHITE BLOOD COUNT 4.8 10^3/uL (4.0-10.0)
[2022-03-16 12:09] LABS: INR 0.99; PROTHROMBIN TIME 13.5 SECONDS (12.7-14.5)
[2022-03-16 12:18] VITALS: BP 161/71
[2022-03-16] MEDS ORDERED: ISOVUE-370 76% 100ML VIAL As Ordered ONE (12:19)
[2022-03-16 13:02] LABS: ALBUMIN 2.9 GM/DL (3.2-5.2); BILIRUBIN,TOTAL 0.6 MG/DL (0.2-1.0); C REACTIVE PROTEIN QUANTITATIV 3.73 MG/DL (0.00-0.30); CALCIUM LEVEL 8.5 MG/DL (8.8-10.2); CREATININE FOR GFR 8.81 MG/DL (0.55-1.30); GLOMERULAR FILTRATION RATE 4.8 (>45); MAGNESIUM LEVEL 2.4 MG/DL (1.8-2.4); POTASSIUM SERUM 4.1 MEQ/L (3.5-5.1); TOTAL PROTEIN 6.9 GM/DL (6.4-8.2)
== END 2022-03-16 16:39 | disposition home or self-care (01) ==
LOC: M ED 10:23
DX: U07.1 COVID-19 (principal); R94.31 Abnormal electrocardiogram [ECG] [EKG]; E11.9 Type 2 diabetes mellitus without complications; J44.9 Chronic obstructive pulmonary disease, unspecified; N18.6 End stage renal disease; Z91.048 Other nonmedicinal substance allergy status; Z88.5 Allergy status to narcotic agent
CPT/HCPCS: 36415; 71045; 71275; 80053; 82728; 83605; 83615; 83735; 84145; 84484; 85025; 85384; 85610; 85730; 86140; 87040; 93005; 99284; Q9967

== ENCOUNTER → 2022-06-12 | Outpatient (CLI) | payer MEDICARE, OTHER ==
[2022-06-12 15:53] LABS: ALBUMIN 3.2 GM/DL (3.2-5.2); BILIRUBIN,TOTAL 0.4 MG/DL (0.2-1.0); CHOLESTEROL RISK RATIO 2.804 (<5); CREATININE FOR GFR 6.6 MG/DL (0.55-1.30); FREE T4 0.81 NG/DL (0.76-1.46); GLOMERULAR FILTRATION RATE 6.7 (>45); POTASSIUM SERUM 5.3 MEQ/L (3.5-5.1); THYROID STIMULATING HORMONE 1.75 uIU/ML (0.358-3.740)
[2022-06-12 17:59] LABS: HEMOGLOBIN A1c 7.1 %
== END ==
LOC: M PLALAB 09:24
PROVIDERS: ATTEND Family Medicine
DX: E11.29 Type 2 diabetes mellitus with other diabetic kidney complication (principal); E78.2 Mixed hyperlipidemia

== ENCOUNTER → 2022-07-22 | Outpatient (CLI) | payer MEDICARE, OTHER | LOC: M WHC 10:41 | PROVIDERS: ATTEND Family Medicine | DX: Z12.31 Encounter for screening mammogram for malignant neoplasm of breast (principal); Z13.820 Encounter for screening for osteoporosis; M85.851 Other specified disorders of bone density and structure, right thigh; M85.852 Other specified disorders of bone density and structure, left thigh ==

== ENCOUNTER → 2022-12-27 | Outpatient (CLI) | payer MEDICARE, OTHER | LOC: M LABSMTC 10:16 | PROVIDERS: ATTEND Anesthesiology | DX: Z01.812 Encounter for preprocedural laboratory examination (principal); Z11.52 Encounter for screening for COVID-19 ==

== ENCOUNTER → 2022-12-30 | Outpatient (CLI) | payer MEDICARE, OTHER ==
[~2022-12-30] MED LIST changes: +HEPARIN 1,000UNITS/ML 10ML VIAL (FOR RADIOLOGY & DIALYSIS ONLY) As Ordered ONE; +ISOVUE-300 61% 100ML VIAL As Ordered ONE; +LIDOCAINE 1% MDV 20ML VIAL As Ordered ONE; +MIDAZOLAM INJ 2MG/2ML VIAL As Ordered ONE; +NS 1,000 ML IV SCH; +ceFAZolin 2 GM/D5W 50 ML IV BAG As Ordered ONE; +ceFAZolin SOD 2 GM in IV 1 EA IV ONE; +fentaNYL 100 MCG/2 ML INJECTION As Ordered ONE
[2022-12-30 08:09] LABS: HEMATOCRIT 33.5 % (36.0-47.0); HEMOGLOBIN 10.2 g/dl (12.0-15.5); MEAN CORPUSCULAR HEMOGLOBIN 28.2 pg (27.0-33.0); MEAN CORPUSCULAR HGB CONC 30.4 g/dl (32.0-36.5); MEAN CORPUSCULAR VOLUME 92.5 fl (80.0-96.0); PLATELET COUNT, AUTOMATED 118 10^3/uL (150-450); RED BLOOD COUNT 3.62 10^6/uL (4.00-5.40); WHITE BLOOD COUNT 5.1 10^3/uL (4.0-10.0)
[2022-12-30 08:21] LABS: PARTIAL THROMBOPLASTIN TIME 29.4 SECONDS (24.8-34.2); PROTHROMBIN TIME 13.4 SECONDS (12.5-14.5)
[2022-12-30 08:38] LABS: CALCIUM LEVEL 8.7 MG/DL (8.3-10.6); CREATININE FOR GFR 7.13 MG/DL (0.55-1.30); GLOMERULAR FILTRATION RATE 6.1 (>45); POTASSIUM SERUM 4.7 MMOL/L (3.5-5.1)
[2022-12-30 11:00] VITALS: BP 132/63
== END ==
LOC: M IRPRO 07:28
PROVIDERS: ATTEND Surgery Vascular Surgery
DX: N18.6 End stage renal disease (principal); I87.1 Compression of vein; Z99.2 Dependence on renal dialysis
CPT/HCPCS: 36902; 80048; 85027; 85610; 85730; 86850; 86900; 86901; 99152; 99153; C1725; C1769; C1887; C1894; J0690; J1644; J2250; J3010; Q9967

== ENCOUNTER → 2023-04-08 | Outpatient (CLI) | payer MEDICARE, OTHER ==
[~2023-04-08] MED LIST changes: -HEPARIN 1,000UNITS/ML 10ML VIAL (FOR RADIOLOGY & DIALYSIS ONLY) As Ordered ONE; -ISOVUE-300 61% 100ML VIAL As Ordered ONE; -LIDOCAINE 1% MDV 20ML VIAL As Ordered ONE; -MIDAZOLAM INJ 2MG/2ML VIAL As Ordered ONE; -NS 1,000 ML IV SCH; -ceFAZolin 2 GM/D5W 50 ML IV BAG As Ordered ONE; -ceFAZolin SOD 2 GM in IV 1 EA IV ONE; -fentaNYL 100 MCG/2 ML INJECTION As Ordered ONE
== END ==
LOC: M WHC 13:50
PROVIDERS: ATTEND Family Medicine
DX: Z12.31 Encounter for screening mammogram for malignant neoplasm of breast (principal)

== ENCOUNTER → 2023-05-11 | Outpatient (CLI) | payer MEDICARE, OTHER | LOC: M CARPUL 10:24 | PROVIDERS: ATTEND Family Medicine | DX: I77.810 Thoracic aortic ectasia (principal) ==

== ENCOUNTER → 2023-07-23 | Outpatient (CLI) | payer MEDICARE, OTHER ==
[~2023-07-23] MED LIST changes: -ROPI0.253 PO; +ROPI5TAB19 PO
== END ==
LOC: M WHC 09:54
PROVIDERS: ATTEND Family Medicine
DX: Z12.31 Encounter for screening mammogram for malignant neoplasm of breast (principal)

== ENCOUNTER → 2023-09-17 | Outpatient (CLI) | payer MEDICARE, OTHER ==
[2023-09-17 14:04] LABS: HEMOGLOBIN A1c 6.6 % (4.0-6.0)
[2023-09-17 14:23] LABS: CHOLESTEROL RISK RATIO 3.49 (<5); FREE T4 0.82 NG/DL (0.89-1.76); HDL CHOLESTEROL 41.2 MG/DL (>40); LDL CHOLESTEROL 57.4 MG/DL (<100); NON-HDL-C 102.8 MG/DL; THYROID STIMULATING HORMONE 2.214 uIU/ML (0.55-4.78)
[2023-09-18 07:09] LABS: APOLIPOPROTEIN B/A-1 RATIO 0.5 ratio (0.0-0.6)
== END ==
LOC: M PLALAB 10:04
PROVIDERS: ATTEND Family Medicine
DX: E11.29 Type 2 diabetes mellitus with other diabetic kidney complication (principal); E78.2 Mixed hyperlipidemia

== ENCOUNTER → 2023-09-24 | Outpatient (CLI) | payer MEDICARE, OTHER | LOC: M WHC 12:16 | PROVIDERS: ATTEND Family Medicine | DX: Z12.39 Encounter for other screening for malignant neoplasm of breast (principal) ==

== ENCOUNTER → 2024-04-10 | Outpatient (REF) | payer MEDICARE, OTHER ==
[~2024-04-10] MED LIST changes: +CALC0.0017 TOP; -CALC0.009 TOP
== END ==
LOC: M SFHCPLAZ 14:05
PROVIDERS: ATTEND Family Medicine
DX: E11.29 Type 2 diabetes mellitus with other diabetic kidney complication (principal); E78.2 Mixed hyperlipidemia

== ENCOUNTER → 2024-08-04 | Outpatient (CLI) | payer MEDICARE, OTHER | LOC: M WHC 08:50 | PROVIDERS: ATTEND Family Medicine | DX: Z12.31 Encounter for screening mammogram for malignant neoplasm of breast (principal); M85.851 Other specified disorders of bone density and structure, right thigh ==

== ENCOUNTER → 2025-04-02 | Outpatient (CLI) | payer MEDICARE, OTHER ==
[~2025-04-02] MED LIST changes: +LIDO1ADH93 TD; -LIDO5DIS41 TD; +NYST1POW3 TOP; -NYST1POW9 TOP
== END ==
LOC: M PLAIMG 12:41
PROVIDERS: ATTEND Family Medicine
DX: I35.0 Nonrheumatic aortic (valve) stenosis (principal); I77.810 Thoracic aortic ectasia

== ENCOUNTER → 2025-08-13 | Outpatient (CLI) | payer MEDICARE, OTHER ==
[~2025-08-13] MED LIST changes: +SENN-225 PO; -SENO8.6T5 PO
== END ==
LOC: M WHC 09:33
PROVIDERS: ATTEND Family Medicine
DX: Z12.31 Encounter for screening mammogram for malignant neoplasm of breast (principal); R92.323 Mammographic fibroglandular density, bilateral breasts